=== PATIENT | female | born 1945 | race Caucasian/White ===

== ENCOUNTER 2016-08-27 08:10 | Day surgery (SDC) | payer MEDICARE, OTHER ==
[2016-08-27] MEDS ORDERED: LACTATED RINGERS 500 ML IV ONE (08:16)
[2016-08-27] MEDS ORDERED: TROPICAMIDE 1% OPHTH 2 ML DROPS OPTH ONE (08:38)
[2016-08-27] MEDS ORDERED: KETOROLAC 0.45% OPHTH DROPS OPTH ONE (08:38)
[2016-08-27] MEDS ORDERED: CYCLOPENTOLATE 1% OPHTH DROPS 2 ML OPTH ONE (08:38)
[2016-08-27] MEDS ORDERED: BSS/LIDOCAINE/EPINEPHRINE 1 ML SYRINGE IO ONE (09:15)
[2016-08-27] MEDS ORDERED: PROPARACAINE 0.5% OPHTH DROPS 15 ML OPTH ONE (09:15)
[2016-08-27] MEDS ORDERED: BRIMONIDINE 0.2% OPHTH DROPS 5 ML OPTH ONE (09:15)
[2016-08-27] MEDS ORDERED: EPINEPHrine 1 MG/ML AMP IO ONE (09:15)
[2016-08-27] MEDS ORDERED: NEOMYCIN/POLYMYX/DEXAMETH OPHTH OINT OPTH ONE (09:15)
[2016-08-27] MEDS ORDERED: CHONDR SULF/HYALURONATE SYRINGE IO ONE (09:15)
[2016-08-27] MEDS ORDERED: levoFLOXacin 0.5% OPHTH DROPS 5 ML OPTH ONE (09:15)
[2016-08-27] MEDS ORDERED: fentaNYL 100 MCG/2 ML VIAL IVP ONE (09:25)
[2016-08-27] MEDS ORDERED: MIDAZOLAM 2 MG/2 ML VIAL IVP ONE (09:25)
[2016-08-27] MEDS ORDERED: ONDANSETRON 4 MG/2 ML VIAL IVP ONE (09:25)
[2016-08-27] MEDS ORDERED: DEXAMETHASONE 4 MG/ML VIAL IVP ONE (09:25)
[2016-08-27] MEDS ORDERED: LIDOCAINE-PF 2% 10 ML AMP SUBQ ONE (09:25)
[2016-08-27] MEDS ORDERED: ePHEDrine 50 MG/ML VIAL IVP ONE (09:25)
[2016-08-27] MEDS ORDERED: PROPOFOL 200 MG/20 ML VIAL IVP ONE (09:25)
[2016-08-27 10:57] VITALS: BP 136/85
--- NOTE | 2016-08-27 12:26 | OPERATIVE REPORT ---
DATE OF SURGERY: 08/27/2016 00:00:00 PREOPERATIVE DIAGNOSIS: Visually impairing cataract, right eye. POSTOPERATIVE DIAGNOSIS: Visually impairing cataract, right eye. NAME OF PROCEDURE: Phacoemulsification cataract extraction with intraocular lens implant of the righ t eye, clear corneal lateral approach. SURGEON: Zachary Shah MD ANESTHESIA: General. COMPLICATIONS: None. DESCRIPTION OF SURGICAL PROCEDURE: The patient was brought to the OR and after IV and cardiac leads were placed, the patient was then prepped and draped in the usual ophthalmic manner, after the onset of general anesthesia. A lid speculum was used to separate the eyelids and expose the eye. The eye was held securely with the Colibri forceps. A Micro-Sharp blade was used to make a self-sealing stab wound 2 o'clock hours to the left of the planned clear corneal incision. Viscoelastic was placed i n the eye after the use of intracameral Shugarcaine to help dilate the pupil, and then a crescent ronda de was used to make initial vertical component of the self-sealing clear corneal incision. A 2.7 ker atome was used to complete the incision. A circular tear capsulorrhexis was performed. The nucleus was hydrodissected, and phacoemulsification of the cataract was performed without complication. The I/A unit was used to remove the cortical material from the eye. The posterior capsule was polished c rystal clear with the Roxanna capsule polisher, and again the I/A unit was used to remove any loose par ticulate matter after polishing the capsule. Viscoelastic was used to inflate the capsular bag. An AcrySof lens was inserted into the capsular bag with the loops left at about the 3 o'clock and 9 o'cl ock meridians. The I/A unit was used to remove as much Viscoelastic from the eye as possible, the wo unds were examined and it was decided that the tunnel incision was not quite tight enough so interrup jing 10-0 nylon suture was placed. The suture was tied, trimmed close to the knot, and buried in the limbal side of the clear cornea. BSS was used to fill the anterior chamber, the wounds were found to be sealed and water tight. Several drops of Quixin were placed on the eye. The lid speculum was re moved. A drop of brimonidine was placed on the eye. The eye was shielded, and the patient was taken to the recovery room after awakening from general anesthesia in good condition. JOB #: [id number] EXT JOB #:[id number]
== END 2016-08-27 08:11 | disposition home or self-care (01) ==
LOC: SDS 08:10
PROVIDERS: ATTEND Specialist
PROC: 08RJ3JZ Replacement of Right Lens with Synthetic Substitute, Percutaneous Approach (ICD-10-PCS; principal; 2016-08-27 09:00)
DX: H25.11 Age-related nuclear cataract, right eye (principal); H40.9 Unspecified glaucoma
CPT/HCPCS: 66984; V2632

== ENCOUNTER 2017-11-06 09:47 | Outpatient (CLI) | payer MEDICARE, OTHER ==
[2017-11-06 14:40] LABS: BASOPHILS % (AUTO) 0.7 %; EOSINOPHILS # (AUTO) 0.2 10^3/uL (0.0-0.7); EOSINOPHILS % (AUTO) 5.3 %; HGB - HEMOGLOBIN 12.8 g/dL (12.0-16.0); LYMPHOCYTES # (AUTO) 1.1 10^3/uL (1.5-3.5); LYMPHOCYTES % (AUTO) 29.8 %; MEAN CORPUSCULAR HEMOGLOBIN 33.5 pg (27.0-31.0); MEAN CORPUSCULAR HGB CONC 33.4 g/dL (32.0-36.0); MEAN CORPUSCULAR VOLUME 100.4 fL (81.0-99.0); MONOCYTES # (AUTO) 0.3 10^3/uL (0.0-1.0); MONOCYTES % (AUTO) 8.4 %; NEUTROPHILS # (AUTO) 2.1 10^3/uL (1.5-6.6); NEUTROPHILS % (AUTO) 55.8 %; PLT - PLATELET COUNT 239 10^3/uL (130-450); RED BLOOD COUNT 3.82 10^6/uL (4.20-5.40); RED CELL DISTRIBUTION WIDTH 13.9 % (12.0-15.0); WHITE BLOOD COUNT 3.7 x10^3/uL (4.8-10.8)
== END 2017-11-06 09:48 | disposition home or self-care (01) ==
LOC: LAB.R 09:47
PROVIDERS: ATTEND Internal Medicine
DX: D75.89 Other specified diseases of blood and blood-forming organs (principal)
CPT/HCPCS: 82607; 83921; 85025

== ENCOUNTER 2017-11-10 11:46 | Outpatient (CLI) | payer MEDICARE, OTHER | END 2017-11-10 11:47 | disposition critical access hospital (66) | LOC: EMS 11:46 | PROVIDERS: ATTEND Surgery | DX: R10.9 Unspecified abdominal pain (principal) | CPT/HCPCS: A0425; A0429 ==

== ENCOUNTER 2017-11-10 12:22 | Emergency (ER) | payer MEDICARE, OTHER ==
[2017-11-10 13:10] LABS: BASOPHILS % (AUTO) 0.9 %; EOSINOPHILS % (AUTO) 0.9 %; HGB - HEMOGLOBIN 13.7 g/dL (12.0-16.0); LYMPHOCYTES % (AUTO) 24.5 %; MEAN CORPUSCULAR HEMOGLOBIN 33.4 pg (27.0-31.0); MEAN CORPUSCULAR VOLUME 98.1 fL (81.0-99.0); MEAN PLATELET VOLUME 8.5 fL (7.9-10.8); MONOCYTES # (AUTO) 0.4 10^3/uL (0.0-1.0); MONOCYTES % (AUTO) 9.3 %; NEUTROPHILS # (AUTO) 2.6 10^3/uL (1.5-6.6); NEUTROPHILS % (AUTO) 64.4 %; PLT - PLATELET COUNT 250 10^3/uL (130-450); RED CELL DISTRIBUTION WIDTH 13.9 % (12.0-15.0); WHITE BLOOD COUNT 4.1 x10^3/uL (4.8-10.8)
[2017-11-10] MEDS ORDERED: MORPHINE 2 MG/ML SYRINGE IVP STA ×3 (13:17→18:57)
--- NOTE | 2017-11-10 13:18 | ED Physician Documentation ---
PD HPI ABD PAIN - Stated complaint Stated Complaint: Abd px - Chief complaint Chief Complaint: Abd Pain - History obtained from History obtained from: Patient - History of Present Illness Timing - onset: Other (She developed lower abdominal pain and nausea and diarrhea on October 06. Since then she has had persistently low appetite and lower abdominal pain. She lost 15 pounds since then. She also notes that she has not had a bowel movement since October 06 seconds. The diarrhea only lasted that day. She has tried Tylenol suppositories and enemas which if anything make her worse. She also notes that about 2 weeks ago she was lifting a flower pot and developed right low back pain radiating into the right leg that feels like a burning. She has had sciatica before and this is partially similar.) Review of Systems Constitutional: reports: Fatigue, Weight Loss. denies: Fever, Chills Nose: denies: Rhinorrhea / runny nose, Congestion Cardiac: denies: Chest pain / pressure, Palpitations Respiratory: denies: Dyspnea, Cough GI: reports: Abdominal Pain, Abdominal Swelling, Nausea, Constipation, Diarrhea. denies: Vomiting PD PAST MEDICAL HISTORY - Past Medical History Past Medical History: Yes Cardiovascular: Other Respiratory: None Endocrine/Autoimmune: None GI: Other : Kidney stones, Other HEENT: Glaucoma, Other Psych: None Musculoskeletal: Osteoarthritis Derm: Other - Past Surgical History General: Appendectomy Ortho: Other - Present Medications Home Medications: Ambulatory Orders Medication Instructions Recorded Confirmed Latanoprost 0.005% Ophth Drops 1 drops OPTH QPM 08/26/16 08/26/16 [Xalatan Ophth Drops] Timolol 0.25% Ophth Drops 1 drops OPTH BID 08/26/16 08/26/16 [Timoptic 0.25% Ophth Drops] Oxycodone HCl/Acetaminophen 1 - 2 tab PO Q4H PRN #30 tablet 11/10/17 [Percocet 5-325 mg Tablet] Promethazine Supp [Phenergan Supp] 25 mg WV Q6H PRN #15 supp 11/10/17 - Allergies Allergies/Adverse Reactions: Allergies Allergy/AdvReac Type Severity Reaction Status Date / Time No Known Drug Allergies Allergy Verified 08/26/16 13:44 - Social History Does the pt smoke?: No Smoking Status: Never smoker PD ED PE NORMAL - Vitals Vital signs reviewed: Yes - General General: Alert and oriented X 3, No acute distress - HEENT HEENT: Other (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 Grossly equal sensation and reflexes throughout the lower extremities limited somewhat by chronic neuropathic pain making her hypersensitive.) - Neuro Neuro: Alert and oriented X 3, Normal speech Results - Vitals Vitals: Vital Signs - 24 hr 11/10/17 11/10/17 11/10/17 12:24 14:37 16:27 Temperature 36.4 C L Heart Rate 81 70 69 Respiratory 18 18 18 Rate Blood Pressure 185/106 H 178/92 H O2 Saturation 100 98 100 11/10/17 11/10/17 16:29 18:04 Temperature 36.5 C Heart Rate 62 62 Respiratory 20 16 Rate Blood Pressure 163/102 H 189/99 H O2 Saturation 100 98 Oxygen O2 Source Room air - Labs Labs: Laboratory Tests 11/10/17 11/10/17 11/10/17 13:01 13:01 13:35 WBC 4.1 L RBC 4.10 L Hgb 13.7 Hct 40.2 MCV 98.1 MCH 33.4 H MCHC 34.0 RDW 13.9 Plt Count 250 MPV 8.5 Neut # (Auto) 2.6 Lymph # (Auto) 1.0 L Rogers # (Auto) 0.4 Eos # (Auto) 0.0 Baso # (Auto) 0.0 Absolute Nucleated RBC 0.00 Nucleated RBC % 0.1 Sodium 136 Potassium 3.7 Chloride 100 L Carbon Dioxide 26 Anion Gap 10.0 BUN 19 Creatinine 0.6 Estimated GFR (MDRD) 98 Glucose 108 H Calcium 9.5 Total Bilirubin 1.2 H AST 19 ALT 14 Alkaline Phosphatase 55 Total Protein 7.3 Albumin 4.3 Globulin 3.0 Albumin/Globulin Ratio 1.4 Lipase 29 Urine Color YELLOW Urine Clarity CLEAR Urine pH 7.0 Ur Specific Fisk 1.010 Urine Protein NEGATIVE Urine Glucose (UA) NEGATIVE Urine Ketones TRACE Urine Occult Blood NEGATIVE Urine Nitrite NEGATIVE Urine Bilirubin NEGATIVE Urine Urobilinogen 0.2 (NORMAL) Ur Leukocyte Esterase SMALL H Urine RBC 0-5 Urine WBC 0-3 Ur Squamous Epith Cells FEW Squamous Urine Bacteria Few Urine Casts 3-5 Hyaline Casts Urine Mucus Moderate Strands Ur Microscopic Review INDICATED Urine Culture Comments INDICATED - Rads (name of study) CT A/P Radiology: EMP read contemporaneously (No intra-abdominal pathology. She has early subacute moderate compression fracture of L4 with market bony central spinal canal stenosis and also diverticulosis.) PD MEDICAL DECISION MAKING - ED course ED course: 72-year-old woman with spinal and abdominal pain after an injury with lifting a few weeks ago. No hard neurologic symptoms. CT demonstrates L4 compression fracture with retropulsion and spinal stenosis. I discussed with the patient that WE needed to consult with a spine surgeon. She had seen an orthopedist with [facility] before and we were trying to get a hold of them, but eventually was called back by a general orthopedist and she could not really help me. This was around 530 or so. Attention was then turned to trying to get a hold of the spine surgeon in [place]. Patient also asked us to call [facility] but they had no beds in the spine surgeon was not immediately available. I did speak with Dr. Paredes in [place] who reviewed the images and felt like she may need a surgical intervention at some point but it was not urgent and this could be handled as an outpatient. We had a long discussion about disposition. Patient vacillated on whether she would be able to take care of herself at home. She has been up and ambulatory here into the bathroom several times with some pain but able to do it. I discussed with her that the appropriate level of care for her if she was unable to take care of herself at home would be a fdc and offered to let her board in the emergency department overnight so that this could be addressed in the morning. She refused. She did ask to be admitted and we discussed the limitations of this (i.e. Probably just 1 night, observation status), and after a prolonged discussion she agreed to go home with pain medication and refuses to go to a fdc. - Sepsis Event Vital Signs: Vital Signs - 24 hr 11/10/17 11/10/17 11/10/17 12:24 14:37 16:27 Temperature 36.4 C L Heart Rate 81 70 69 Respiratory 18 18 18 Rate Blood Pressure 185/106 H 178/92 H O2 Saturation 100 98 100 11/10/17 11/10/17 16:29 18:04 Temperature 36.5 C Heart Rate 62 62 Respiratory 20 16 Rate Blood Pressure 163/102 H 189/99 H O2 Saturation 100 98 Oxygen O2 Source Room air Departure - Departure Disposition: 01 Home, Self Care Clinical Impression: L4 vertebral fracture Qualifiers: Encounter type: initial encounter Fracture type: closed Fracture morphology: wedge compression Qualified Code(s): S32.040A - Wedge compression fracture of fourth lumbar vertebra, initial encounter for closed fracture Condition: Good Record reviewed to determine appropriate education?: Yes Instructions: ED Fx Comp Vertebral Prescriptions: Oxycodone HCl/Acetaminophen [Percocet 5-325 mg Tablet] 1 - 2 tab PO Q4H PRN #30 tablet PRN Reason: Pain Promethazine Supp [Phenergan Supp] 25 mg WV Q6H PRN #15 supp PRN Reason: Nausea / Vomiting Comments: I spoke with Dr. Moshe Paredes in [facility], he would be a good option, his phone number is [phone]. Return if worse or call Dr. londono if you would like to reconsider fdc placement. Do not drink or drive while taking narcotic pain medication. Note that many narcotic pain relievers also contain Tylenol/acetaminophen. Please ensure that your total dose of acetaminophen from all sources does not exceed 3 g (3000 mg) per day. You may get constipated while on this medication. Take a stool softener such as Colace twice a day while you are on it. Also add an jryg-gwj-lejrodp laxative such as senna or MiraLAX on any day that you do not have a bowel movement. If you received a narcotic pain medication or sedative while in the emergency department, do not drive for the next 24 hours. Discharge Date/Time: 11/10/17 19:33
[2017-11-10 13:26] LABS: ALBUMIN 4.3 g/dL (3.2-5.5); ALBUMIN/GLOBULIN RATIO 1.4 (1.0-2.2); BILIRUBIN,TOTAL 1.2 mg/dL (0.2-1.0); CALCIUM 9.5 mg/dL (8.5-10.3); CREATININE 0.6 mg/dL (0.4-1.0); TOTAL PROTEIN 7.3 g/dL (6.7-8.2)
[2017-11-10 13:47] LABS: BILIRUBIN,URINE NEGATIVE (NEGATIVE); GLUCOSE, URINE (UA) NEGATIVE (NEGATIVE); KETONES,URINE (UA) TRACE mg/dL (NEGATIVE); LEUKOCYTE ESTERASE, URINE SMALL (NEGATIVE); NITRITE,URINE NEGATIVE (NEGATIVE); OCCULT BLOOD,URINE NEGATIVE (NEGATIVE); PROTEIN,URINE NEGATIVE (NEGATIVE); UROBILINOGEN,URINE 0.2 (NORMAL) E.U./dL (NORMAL)
[2017-11-10 13:52] LABS: CLARITY,URINE CLEAR (CLEAR)
[2017-11-10] MEDS ORDERED: IOPAMIDOL-300 100 ML VIAL ONE (14:07)
[2017-11-10 14:11] LABS: BACTERIA,URINE Few /HPF (None Seen); MUCUS,URINE Moderate Strands; RBC,URINE 0-5 /HPF (0-5); SQUAMOUS EPITHELIAL CELL,UR FEW Squamous (<= Few)
[2017-11-10] MEDS ORDERED: IOPAMIDOL-300 100 ML VIAL IVP ONE (14:31)
--- NOTE | 2017-11-10 15:01 | CT Report ---
Procedure Date: 11/10/2017 Accession Number: [id number] / [id number] Procedure: CT - Abdomen/Pelvis W/ CPT Code: FULL RESULT: EXAM: CT ABDOMEN AND PELVIS EXAM DATE: 11/10/2017 02:30 PM. CLINICAL HISTORY: Lower abdominal pain. No bowel movement. COMPARISONS: None. TECHNIQUE: Routine helical CT imaging was performed through the abdomen and pelvis. IV contrast: ISOVUE 300 100mL. Enteric contrast: No. Reconstructions: Coronal and sagittal. In accordance with CT protocol optimization, one or more of the following dose reduction techniques were utilized for this exam: automated exposure control, adjustment of mA and/or KV based on patient size, or use of iterative reconstructive technique. FINDINGS: Lung Bases: Unremarkable. Liver: Normal. No masses. Gallbladder/Bile Ducts: Unremarkable. Spleen: Normal. Pancreas: Normal. Adrenal Glands: Normal. Kidneys: Normal. No masses or hydronephrosis. Peritoneal Cavity/Bowel: Diverticula off the colon. No free fluid, free air or adenopathy. No masses or acute inflammatory process. No excessive stool retention. Appendix not visualized, but no inflammatory changes adjacent to the cecum. Pelvic Organs: Hysterectomy. 8 x 6 mm extremely dense calcification left adnexa without soft tissue component. No soft tissue adnexal mass lesions. No free fluid. No stones within the small caliber urinary bladder. Vasculature: No aneurysms or other significant abnormality. Bones: Moderate impaction superior endplate of L4 involving entirety of the endplate. Uniform 50% loss of height. 7 mm retropulsed bone fragment with marked bony central spinal compromise at L3-L4. Faint uniform sclerosis superior half of the L4 vertebral body. Multiple old mild compression fractures throughout the rest of the spine. Moderate to marked central spinal canal stenosis L4-L5 due to degenerative changes. Other: None. IMPRESSION: 1. Early subacute moderate compression fracture L4 with marked bony central spinal canal stenosis. Is this lady focally tender in this region? 2. Colonic diverticulosis. RADIA The above findings were discussed with James Hough by Dr. Keren Buck at 15:00 hrs on 11/10/17.
[2017-11-10 18:05] VITALS: BP 189/99
[2017-11-10] MEDS ORDERED: PROMETHAZINE 25 MG SUPP PR STA (18:40)
[2017-11-10] MEDS ORDERED: oxyCODONE/ACET 5/325 Prepack 4 PO STA (18:40)
== END 2017-11-10 19:33 | disposition home or self-care (01) ==
LOC: EDUNIT# → ED 12:22
DX: S32.040A Wedge compression fracture of fourth lumbar vertebra, initial encounter for closed fracture (principal); X50.9XXA Other and unspecified overexertion or strenuous movements or postures, initial encounter
CPT/HCPCS: 36415; 74177; 80053; 81001; 83690; 85025; 87086; 96374; 96376; 99284; J2270; J8498; Q9967; 81003

== ENCOUNTER 2017-11-26 10:18 | Outpatient (CLI) | payer MEDICARE, OTHER ==
--- NOTE | 2017-11-27 18:21 | MRI Report ---
Reason: CLOSED COMPRESSION FRACTURE OF FORTH LUMBAR VERTEB Procedure Date: 11/26/2017 Accession Number: [id number] / [id number] Procedure: MRI - Lumbar Spine W/O CPT Code: FULL RESULT: EXAM: MRI LUMBAR SPINE WITHOUT CONTRAST EXAM DATE: 11/26/2017 11:18 AM. CLINICAL HISTORY: Closed compression fracture of fourth lumbar vertebra. COMPARISON: CT abdomen and pelvis 11/10/2017. TECHNIQUE: Multiplanar, multisequence T1-weighted and fluid-sensitive sequences of the lumbar spine from T12 to S1 without contrast. Other: None. FINDINGS: Spinal Canal: The conus terminates at T12-L1. The conus medullaris and cauda equina are unremarkable. Alignment: No scoliosis or spondylolisthesis. Bone Marrow: Five [id number] lumbar vertebral bodies are assumed. Most caudal rib-bearing vertebral body labeled T12. There is a transitional lumbosacral anatomy with a lumbarized S1. Acute/subacute compression fracture of the upper L5 endplate, loss of 30% height, marrow edema along the superior endplate, sparing of the T1 hyperintense marrow along the anterior inferior L5 vertebral body. Disk Levels/Facets: T10-T11: Disk desiccation without significant canal narrowing. Mild facet arthropathy without significant foraminal narrowing. T11-T12: Disk desiccation. Annular bulge. Mild facet arthropathy. Mild bilateral foraminal narrowing. Mild canal narrowing. T12-L1: Disk desiccation. Annular bulge. No significant canal or foraminal narrowing. L1-L2: Disk desiccation. Posterior annular fissure. No significant canal or foraminal narrowing. L2-L3: Disk desiccation. Mild anterior wedge deformity. Annular bulge. Mild facet arthropathy. Mild bilateral foraminal narrowing. Mild canal narrowing. L3-L4: Disk desiccation. Annular bulge. Mild bilateral facet arthropathy and ligamentum flavum thickening. Mild subarticular narrowing and mild canal narrowing. Mild bilateral foraminal narrowing. L4-L5: Annular bulge. Bilateral facet arthropathy and ligamentum flavum thickening. Severe canal narrowing and severe subarticular narrowing. Moderate bilateral foraminal narrowing. L5-S1: Annular bulge. Circumferential disk osteophyte complex eccentric to the left subarticular zone. Bilateral facet arthropathy and ligamentum flavum thickening. Severe left moderate right subarticular narrowing. Moderate bilateral foraminal narrowing. At S1-S2, rudimentary disk without significant canal or foraminal narrowing. Musculature: Normal. No edema or fatty atrophy. Other: The partially visualized retroperitoneum is unremarkable. IMPRESSION: 1. Acute/subacute central compression fracture of the upper L5 endplate. There is 30% central height loss without retropulsion. Marrow edema pattern with sparing of the anterior inferior L5 vertebrae compatible with osteoporotic compression fracture. 2. At L4-L5, annular bulge, facet arthropathy and ligamentum flavum thickening results in severe canal narrowing and severe subarticular narrowing. 3. At L5-S1, circumferential disk osteophyte complex eccentric to the left subarticular zone resulting in significant marked stenosis of the left subarticular zone, impingement of the left S1 nerve root could be correlated with left S1 radiculopathy. Moderate bilateral foraminal narrowing. Comment: The following findings are so common in adults without low back pain that while we report their presence, they must be interpreted with caution and in the context of the clinical situation. (Reference Juan Luisvik et al, Spine 2001) Prevalence of findings in patients without low back pain: Disk degeneration (any evidence): 92% Disk desiccation/T2 signal loss: 83% Disk height loss: 56% Disk bulge: 64% Disk protrusion: 32% Annular tear/high intensity zone: 38% RADIA
== END 2017-11-26 10:19 | disposition home or self-care (01) ==
LOC: DI 10:18
PROVIDERS: ATTEND Physician Assistant
DX: M48.56XA Collapsed vertebra, not elsewhere classified, lumbar region, initial encounter for fracture (principal); M51.36 Other intervertebral disc degeneration, lumbar region; M47.896 Other spondylosis, lumbar region; M51.34 Other intervertebral disc degeneration, thoracic region; M47.897 Other spondylosis, lumbosacral region
CPT/HCPCS: 72148

== ENCOUNTER 2017-12-11 12:00 | Outpatient (CLI) | payer MEDICARE, OTHER ==
--- NOTE | 2017-12-12 17:01 | MRI Report ---
Reason: CERVICAL STENOSIS OF SPINE Procedure Date: 12/11/2017 Accession Number: [id number] / [id number] Procedure: MRI - Cervical Spine W/O CPT Code: FULL RESULT: EXAM: MRI CERVICAL SPINE WITHOUT CONTRAST EXAM DATE: 12/11/2017 12:43 PM. CLINICAL HISTORY: Cervical stenosis of spine. Severe neck pain. COMPARISONS: None. TECHNIQUE: Multiplanar, multisequence T1-weighted and fluid-sensitive sequences of the cervical spine without contrast. Other: None. FINDINGS: Neurologic Structures: The visualized posterior fossa structures are unremarkable. No signal abnormality in the visualized spinal cord. Alignment: Anterolisthesis of C3 on C4 measures 3 mm. Bone Marrow: No fractures. Type I endplate change is at C3-C4, C4-C5, C5-C6, and T2-T3. Interspace Levels/Facets: All visualized intervertebral disks are desiccated. C1-C2: Unremarkable. C2-C3: Moderate bilateral facet osteoarthritis results in moderate left foraminal narrowing. Mild ligamentum flavum hypertrophy causes minimal spinal canal narrowing. C3-C4: The anterolisthesis, mild posterior disk/osteophyte complex and severe right-sided facet osteoarthritis cause mild spinal canal, severe right foraminal, and severe left foraminal narrowing. C4-C5: Moderate disk height loss is accompanied by anterior endplate spurring. A posterior disk/osteophyte complex and ligamentum flavum hypertrophy cause severe spinal canal and bilateral foraminal narrowing. The cord is compressed into a jael configuration. C5-C6: Moderate disk height loss is accompanied by anterior endplate spurring. A posterior disk/osteophyte complex, mild ligamentum flavum hypertrophy, and moderate bilateral facet hypertrophy cause severe spinal canal and bilateral foraminal narrowing. The cord is compressed to a jael configuration. C6-C7: A mild posterior disk/osteophyte complex causes mild spinal canal and severe bilateral foraminal narrowing. C7-T1: Unremarkable. Musculature: Normal. No edema or fatty atrophy. Other: The paravertebral and prevertebral soft tissues are normal. IMPRESSION: 1. Anterolisthesis of C3 on C4. 2. Mild spinal canal, severe right foraminal, and severe left foraminal narrowing at C3-C4 due to disk and posterior element degenerative changes. 3. Severe spinal canal and bilateral foraminal narrowing at C4-C5 due to disk and posterior element degenerative changes. 4. Severe spinal canal and bilateral foraminal narrowing at C5-C6 due to disk and posterior element degenerative changes. 5. Mild spinal canal and severe bilateral foraminal narrowing at C6-C7 due to a disk/osteophyte complex. RADIA
== END 2017-12-11 12:01 | disposition home or self-care (01) ==
LOC: DI 12:00
PROVIDERS: ATTEND Neurological Surgery
DX: M50.31 Other cervical disc degeneration, high cervical region (principal); M47.892 Other spondylosis, cervical region; M48.02 Spinal stenosis, cervical region; G95.20 Unspecified cord compression; M43.12 Spondylolisthesis, cervical region
CPT/HCPCS: 72141

== ENCOUNTER 2018-01-26 11:25 | Outpatient (CLI) | payer MEDICARE, OTHER ==
[2018-01-26 17:51] LABS: BILIRUBIN,URINE NEGATIVE (NEGATIVE); GLUCOSE, URINE (UA) NEGATIVE (NEGATIVE); KETONES,URINE (UA) NEGATIVE (NEGATIVE); LEUKOCYTE ESTERASE, URINE NEGATIVE (NEGATIVE); NITRITE,URINE NEGATIVE (NEGATIVE); OCCULT BLOOD,URINE LARGE (NEGATIVE); PROTEIN,URINE TRACE mg/dL (NEGATIVE); UROBILINOGEN,URINE 0.2 (NORMAL) E.U./dL (NORMAL)
[2018-01-26 18:04] LABS: CLARITY,URINE HAZY (CLEAR)
[2018-01-26 18:11] LABS: RBC,URINE TNTC /HPF (0-5)
[2018-01-26 18:12] LABS: BACTERIA,URINE Many /HPF (None Seen); MUCUS,URINE Few Strands; SQUAMOUS EPITHELIAL CELL,UR MANY Squamous (<= Few)
== END 2018-01-26 11:26 | disposition home or self-care (01) ==
LOC: LAB.R 11:25
PROVIDERS: ATTEND Physician Assistant Medical
DX: R35.0 Frequency of micturition (principal); R30.0 Dysuria; R31.9 Hematuria, unspecified
CPT/HCPCS: 81001; 87086; 87181

== ENCOUNTER → 2019-04-19 | Outpatient (CLI) | payer MEDICARE, OTHER | LOC: LAB.R 11:40 | PROVIDERS: ATTEND Family Medicine | DX: R35.0 Frequency of micturition (principal) | CPT/HCPCS: 87086; 87181 ==

== ENCOUNTER 2019-04-21 08:41 | Outpatient (CLI) | payer MEDICARE, OTHER ==
[2019-04-21 18:48] LABS: BASOPHILS % (AUTO) 0.9 %; EOSINOPHILS # (AUTO) 0.1 10^3/uL (0.0-0.7); EOSINOPHILS % (AUTO) 2.1 %; HGB - HEMOGLOBIN 13.9 g/dL (12.0-16.0); LYMPHOCYTES # (AUTO) 0.9 10^3/uL (1.5-3.5); LYMPHOCYTES % (AUTO) 27.2 %; MEAN CORPUSCULAR HEMOGLOBIN 35.1 pg (27.0-31.0); MEAN CORPUSCULAR HGB CONC 32.6 g/dL (32.0-36.0); MEAN CORPUSCULAR VOLUME 107.6 fL (81.0-99.0); MEAN PLATELET VOLUME 11.1 fL (7.9-10.8); MONOCYTES # (AUTO) 0.4 10^3/uL (0.0-1.0); MONOCYTES % (AUTO) 12.5 %; NEUTROPHILS # (AUTO) 1.9 10^3/uL (1.5-6.6); PLT - PLATELET COUNT 191 10^3/uL (130-450); RED BLOOD COUNT 3.96 10^6/uL (4.20-5.40); RED CELL DISTRIBUTION WIDTH 14.6 % (12.0-15.0); WHITE BLOOD COUNT 3.3 x10^3/uL (4.8-10.8)
[2019-04-21 18:56] LABS: ALBUMIN 4.3 g/dL (3.2-5.5); ALBUMIN/GLOBULIN RATIO 1.5 (1.0-2.2); BILIRUBIN,TOTAL 0.7 mg/dL (0.2-1.0); CALCIUM 9.6 mg/dL (8.5-10.3); CREATININE 0.6 mg/dL (0.4-1.0); TOTAL PROTEIN 7.2 g/dL (6.7-8.2)
== END 2019-04-21 08:42 | disposition home or self-care (01) ==
LOC: LAB.R 08:41
PROVIDERS: ATTEND Family Medicine
DX: R35.0 Frequency of micturition (principal); R29.6 Repeated falls; R41.3 Other amnesia
CPT/HCPCS: 36415; 80053; 84443; 85025; 87086; 87181

== ENCOUNTER 2020-01-05 10:47 | Outpatient (CLI) | payer MEDICARE, OTHER | END 2020-01-05 10:48 | disposition critical access hospital (66) | LOC: EMS 10:47 | PROVIDERS: ATTEND Surgery | DX: M54.5 Low back pain (principal); R20.0 Anesthesia of skin; W18.30XA Fall on same level, unspecified, initial encounter; Y92.009 Unspecified place in unspecified non-institutional (private) residence as the place of occurrence of the external cause | CPT/HCPCS: A0425; A0429 ==

== ENCOUNTER 2020-01-05 11:46 | Inpatient (IN) | payer MEDICARE, OTHER ==
--- NOTE | 2020-01-05 12:36 | ED Physician Documentation ---
History of Present Illness - Stated complaint Stated Complaint: FELL/BACK PAIN - Chief complaint Chief Complaint: Trauma Ch/Bk - Additonal information Additional information: 74-year-old female brought into the emergency department via EMS for evaluation after a fall. Patient thinks that she may have fallen around 3 days ago. She states that she was bending over and fell onto the ground. She is not very clear about the events but says that she could not immediately get up. She thinks she was on the ground for perhaps an hour or 2 before she was able to make her way to the couch. Since then she reports that she has had low back pa in around the waistline. She has been "gimping around" Patient states that she lives by herself and no one helps care for her. She states she has not eaten for 3 or 4 days. When asked if she thinks she has dementia she states "probably so." Patient unsure of past medical history. Though she states she does not think she has much. She denies taking any routinely prescribed medications. 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 She denies nausea vomiting or diarrhea. no dysuria Patient has in her possession a pulsed form that indicates she is a DNR comfort measures no antibiotics. The listed power of immigration attorney phone number is not excepting voicemails. Review of Systems Unable to obtain: Confused, Dementia, Other (pt seems confused. difficult to obtain) Cardiac: denies: Chest pain / pressure, Palpitations Respiratory: denies: Dyspnea, Cough GI: denies: Abdominal Pain, Nausea, Vomiting : denies: Dysuria PD PAST MEDICAL HISTORY - Past Medical History Cardiovascular: Other Respiratory: None Endocrine/Autoimmune: None GI: Other : Kidney stones, Other HEENT: Glaucoma, Other Psych: None Musculoskeletal: Osteoarthritis Derm: Other - Past Surgical History General: Appendectomy Ortho: Other - Present Medications Home Medications: Ambulatory Orders Medication Instructions Recorded Confirmed Latanoprost 0.005% Ophth Drops 1 drops OPTH QPM 08/26/16 08/26/16 [Xalatan Ophth Drops] Timolol 0.25% Ophth Drops 1 drops OPTH BID 08/26/16 08/26/16 [Timoptic 0.25% Ophth Drops] Oxycodone HCl/Acetaminophen 1 - 2 tab PO Q4H PRN #30 tablet 11/10/17 [Percocet 5-325 mg Tablet] Promethazine Supp [Phenergan Supp] 25 mg MD Q6H PRN #15 supp 11/10/17 - Allergies Allergies/Adverse Reactions: Allergies Allergy/AdvReac Type Severity Reaction Status Date / Time No Known Drug Allergies Allergy Verified 01/05/20 11:54 - Social History Does the pt smoke?: No Smoking Status: Never smoker PD ED PE EXPANDED - General General: Alert, No acute distress - HEENT HEENT: PERRL, Gaze palsy (left eye), Other (left with gaze palsy. Normal EOM right eye) - Neck Neck: Supple w/out meningeal sx, No tenderness, Other (FULL ROM in all planes). No: Soft tissue TTP - Cardiac Cardiac: Regular Rate, Murmur Present, Radial strong equal, Pedal strong equal, Cap refill < 2 sec - Respiratory Respiratory: Clear to ausultation edwina. No: Distress, Labored - Abdomen Abdomen: Normal Bowel sounds. No: Tender to palpation - Back Back: Vertebral tenderness (lower lumbar spine), Soft tissue tenderness - Extremities Extremities: Normal, Other (motor strength 5/5 X4 extremeties) - Neuro Neuro: Confused, Normal motor, Normal Speech, Normal reflexes, CN deficit (left eye gaze palsy. ), Normal speech - GCS Eye Opening: Spontaneous Motor: Obeys Commands Verbal: Confused Total: 14 Results - Vitals Vitals: Vital Signs - 24 hr 01/05/20 01/05/20 11:54 13:00 Temperature 36.3 C L Heart Rate 80 80 Respiratory 18 16 Rate Blood Pressure 137/95 H 129/85 H O2 Saturation 100 100 Oxygen O2 Source Room air - Labs Labs: Laboratory Tests 01/05/20 01/05/20 01/05/20 12:30 12:30 13:36 WBC 4.1 L RBC 3.57 L Hgb 13.0 Hct 37.8 MCV 105.9 H MCH 36.4 H MCHC 34.4 RDW 15.4 H Plt Count 196 MPV 9.9 Neut # (Auto) 2.9 Lymph # (Auto) 0.8 L Scurry # (Auto) 0.3 Eos # (Auto) 0.0 Baso # (Auto) 0.0 Absolute Nucleated RBC 0.00 Nucleated RBC % 0.0 Sodium 133 L Potassium 3.6 Chloride 98 L Carbon Dioxide 26 Anion Gap 9.0 BUN 19 Creatinine 0.5 Estimated GFR (MDRD) 120 Glucose 108 H Calcium 9.2 Total Bilirubin 2.3 H AST 32 ALT 30 Alkaline Phosphatase 54 Total Protein 7.4 Albumin 4.0 Globulin 3.4 Albumin/Globulin Ratio 1.2 Lipase 33 Urine Color DARK YELLOW Urine Clarity SL. CLOUDY Urine pH 6.0 Ur Specific [place] 1.025 Urine Protein 30 H Urine Glucose (UA) NEGATIVE Urine Ketones >=80 H Urine Occult Blood TRACE-INTA Urine Nitrite NEGATIVE Urine Bilirubin NEGATIVE Urine Urobilinogen 4 H Ur Leukocyte Esterase MODERATE H Urine RBC 0-5 Urine WBC >25 H Ur Squamous Epith Cells FEW Squamous Urine Bacteria Many H Ur Microscopic Review INDICATED Urine Culture Comments INDICATED - Rads (name of study) CT head Radiology: Final report received (No acute intracranial abnormality. Advanced global cerebral volume loss and chronic microvascular ischemic changes) Lumbar CT Radiology: Final report received (Acute appearing compression fracture at L3, new from 11/26/2017 exam. Remote compression fracture at L4 unchanged. Multilevel spinal canal and neural foraminal stenosis with contact attribution from posterior osseous retropulsion and compression fractures along with superimposed degenerative change) CXR Radiology: Final report received (No acute cardiopulmonary process) PD MEDICAL DECISION MAKING - ED course Complexity details: reviewed results, re-evaluated patient, considered differential, d/w patient ED course: 74-year-old female who likely has underlying dementia presents to the emergency department for evaluation of low back pain after a reported fall 3 to 4 days ago. History is difficult to obtain given patient's mental status. A CT scan of her lumbar spine does show an acute new L3 compression fracture with more than 50% height loss. Medical disposition for her will prove challenging as it is not likely safe for her to return home to live independently. L3 compression Fracture - [facility] consult for L3 compression fx with > 50% loss of height - I have spoke with Dr. Sheppard at [facility]. he is a spine surgeon. He reports to me that given her osteopenia and the low level of the lumbar fracture she is not a good candidate for a TLSO brace. He also does not feel that surgery is indicated at this time. He would recommend upright AP and lateral lumbar films. No significant change in imaging in comparison to the CT would mean that she is okay to be discharged with appropriate analgesia and activity as tolerated Dementia/AMS - Social work consult has been placed. I did speak with the patient's listed contact Peri. She is the patient's neighbor. She reports to me that the patient lives alone and does not have any close family members. She states that for much of the last month she has noticed the patient getting more confused and often stating that there are men looking at her through the windows.She is concerned that patient may not be safe to live alone anymore - UA is most consistent with infection. Culture pending. Ceftriaxone given. No fever or leukocytosis. No hypotension or tachycardia. Doubt sepsis With Dr. Jeramie vásquez. Patient will be admitted to the hospital for altered mental status and urinary tract infection. Social work consult is pending ultimate disposition. The hope is that by treating the infection her mentation will improve making it safer for her to return home Departure - Departure Disposition: [facility] DC/Xfer Clinical Impression: UTI (urinary tract infection) Qualifiers: Urinary tract infection type: acute cystitis Hematuria presence: without hematuria Qualified Code(s): N30.00 - Acute cystitis without hematuria Altered mental status Qualifiers: Altered mental status type: unspecified Qualified Code(s): R41.82 - Altered mental status, unspecified Lumbar compression fracture Qualifiers: Encounter type: initial encounter Lumbar vertebra fracture level: L3 Qualified Code(s): S32.030A - Wedge compression fracture of third lumbar vertebra, initial encounter for closed fracture
[2020-01-05 12:47] LABS: BASOPHILS % (AUTO) 0.5 %; EOSINOPHILS % (AUTO) 0.7 %; LYMPHOCYTES # (AUTO) 0.8 10^3/uL (1.5-3.5); LYMPHOCYTES % (AUTO) 19.6 %; MEAN CORPUSCULAR HEMOGLOBIN 36.4 pg (27.0-31.0); MEAN CORPUSCULAR HGB CONC 34.4 g/dL (32.0-36.0); MEAN CORPUSCULAR VOLUME 105.9 fL (81.0-99.0); MEAN PLATELET VOLUME 9.9 fL (7.9-10.8); MONOCYTES # (AUTO) 0.3 10^3/uL (0.0-1.0); NEUTROPHILS # (AUTO) 2.9 10^3/uL (1.5-6.6); PLT - PLATELET COUNT 196 10^3/uL (130-450); RED BLOOD COUNT 3.57 10^6/uL (4.20-5.40); RED CELL DISTRIBUTION WIDTH 15.4 % (12.0-15.0); WHITE BLOOD COUNT 4.1 x10^3/uL (4.8-10.8)
--- NOTE | 2020-01-05 12:57 | CT Report ---
PROCEDURE: HEAD WO INDICATIONS: Trauma, fall, altered mental status, dementia TECHNIQUE: Noncontrast 4.5 mm thick angled axial sections acquired from the foramen magnum to the vertex. For r adiation dose reduction, the following was used: automated exposure control, adjustment of mA and/or kV according to patient size. COMPARISON: None. FINDINGS: Image quality: Excellent. No acute intracranial hemorrhage, abnormal extra-axial fluid collection, mass effect, or midline shif t. The ventricular system and basilar cisterns are patent. There is advanced global cerebral volume loss with passive expansion of the ventricles and extra-axia l spaces, along with advanced chronic microvascular ischemic change. The degree of ventricular enlarg ement appears commensurate with the underlying volume loss. Left globe prosthesis. Right orbital structures unremarkable. Paranasal sinuses and mastoid air cells are clear. No suspicious lytic or blastic osseous lesion. IMPRESSION: No acute intracranial abnormality. Advanced global cerebral volume loss and chronic microvascular isc hemic changes. Reviewed by: Art King MD on 01/05/2020 12:55 PM PDT Approved by: Art King MD on 01/05/2020 12:55 PM PDT Station ID: [id number]
[2020-01-05 13:01] LABS: ALBUMIN/GLOBULIN RATIO 1.2 (1.0-2.2); BILIRUBIN,TOTAL 2.3 mg/dL (0.2-1.0); CALCIUM 9.2 mg/dL (8.5-10.3); CREATININE 0.5 mg/dL (0.4-1.0); TOTAL PROTEIN 7.4 g/dL (6.7-8.2)
--- NOTE | 2020-01-05 13:07 | CT Report ---
PROCEDURE: LUMBAR SPINE WO INDICATIONS: fall 3 days ago TECHNIQUE: Noncontrast 3 mm thick sections acquired from the T12 level to the sacrum. Sagittal and coronal refo rmats were constructed. For radiation dose reduction, the following was used: automated exposure co ntrol, adjustment of mA and/or kV according to patient size. COMPARISON: None. FINDINGS: Image quality: Excellent. Bones: Unchanged appearance of L4 compression fracture when compared with 11/26/2017 exam. There is a new compression fracture at L3 with approximately 50% height loss centrally and anteriorly. This fred ears acute. There is also mild anterior wedging of the L2 vertebral body which is slightly worse when compared with the November 09, 2017 exam. Remaining vertebral body heights are within normal limits. T here is diffuse osteopenia. No suspicious lytic or blastic osseous lesion. Degenerative endplate haynes ges from L3-L4 through L5-S1. Soft tissues: Prevertebral and paraspinous soft tissues are within normal limits. The included unenha nced retroperitoneal visceral structures demonstrate no acute finding. T12-L1: No spinal canal or neural foraminal stenosis. L1-L2: There is probable mild spinal canal stenosis due to a combination of diffuse disc bulge and joy perimposed broad-based posterior disc protrusion along with buckling of the ligamentum flavum and fac et hypertrophy. These factors all combine to produce mild bilateral neural foraminal stenosis. L2-L3: Diffuse disc bulge and superimposed broad-based posterior disc protrusion combined with pos terior osseous retropulsion of L3 related to the compression fracture to produce moderate-severe spin al canal stenosis. Disc bulge and facet hypertrophy combine to produce mild bilateral neural foramina l stenosis. L3-L4: Diffuse disc bulge and protrusion combined with posterior osseous retropulsion related to co mpression fracture to produce moderate-severe spinal canal stenosis. These factors combine to produce moderate bilateral neural foraminal stenosis. L4-L5: There is severe spinal canal and moderate bilateral neural foraminal stenosis related to dis c height loss, diffuse disc bulge and protrusion, posterior ossific ridging of the endplates, facet h ypertrophy, and buckling of ligamentum flavum. L5-S1: No spinal canal stenosis. Mild right and moderate left neural foraminal narrowing. IMPRESSION: Acute appearing compression fracture at L3, new from 11/26/2017 exam. Remote compression fracture at L4 unchanged. Multilevel spinal canal and neural foraminal stenosis, with contribution from posterior osseous retro pulsion due to the compression fractures along with superimposed degenerative changes. Please see abo ve for details and correlate for any corresponding radicular symptoms. Reviewed by: Art King MD on 01/05/2020 1:06 PM PDT Approved by: Art King MD on 01/05/2020 1:06 PM PDT Station ID: [id number]
--- NOTE | 2020-01-05 13:09 | XRAY Report ---
PROCEDURE: Chest 1 View X-Ray INDICATIONS: fall, dementia TECHNIQUE: One view of the chest was acquired. COMPARISON: 01/11/2015 FINDINGS: Surgical changes and devices: Partially visualized orthopedic plate and screws noted in the left nikolai dian. Lungs and pleura: No pleural effusions or pneumothorax. Lungs are clear. Calcified granulomas versu s left chest wall dystrophic calcification project over the left lung base. Mediastinum: Mediastinal contours appear normal. Heart size is normal. Bones and chest wall: No suspicious bony lesions. Overlying soft tissues appear unremarkable. IMPRESSION: No acute cardiopulmonary disease process. Reviewed by: Danielle Ace MD, PhD on 01/05/2020 1:08 PM PDT Approved by: Danielle Ace MD, PhD on 01/05/2020 1:08 PM PDT Station ID: [id number]
[2020-01-05 13:54] LABS: GLUCOSE, URINE (UA) NEGATIVE (NEGATIVE); KETONES,URINE (UA) >=80 mg/dL (NEGATIVE); LEUKOCYTE ESTERASE, URINE MODERATE (NEGATIVE); NITRITE,URINE NEGATIVE (NEGATIVE); OCCULT BLOOD,URINE TRACE-INTA (NEGATIVE); PROTEIN,URINE 30 mg/dL (NEGATIVE); UROBILINOGEN,URINE 4 E.U./dL (NORMAL)
[2020-01-05 13:57] LABS: BILIRUBIN,URINE NEGATIVE (NEGATIVE); CLARITY,URINE SL. CLOUDY (CLEAR); ICTOTEST,URINE NEGATIVE
[2020-01-05 14:02] LABS: BACTERIA,URINE Many /HPF (None Seen); RBC,URINE 0-5 /HPF (0-5); SQUAMOUS EPITHELIAL CELL,UR FEW Squamous (<= Few)
--- NOTE | 2020-01-05 15:01 | XRAY Report ---
PROCEDURE: Lumbar Spine 2 View INDICATIONS: compar to CT TECHNIQUE: 2 views of the lumbar spine were acquired. COMPARISON: CT of lumbar spine from the same day. MRI of lumbar spine dated 11/26/2017. FINDINGS: Bones: 5 [id number] vertebrae are present. There is straightening of normal lumbar lordosis. C hronic appearing anterior wedge compression deformity at L4 level is again seen not significantly lloyd nged from [address] finding of acute appearing anterior wedge compression deformity at L3 level is again noted, with up to 50-60% loss of L3 vertebral body height anteriorly, unchanged from CT boyd dy on the same day. Chronic appearing anterior wedge compression deformity at T12 and L2 level are ag ain seen, also unchanged from 2018 study. No other new compression deformity is seen. No suspicious b umer lesions. Soft tissues: Overlying bowel gas pattern is normal. No suspicious soft tissue calcifications. IMPRESSION: Acute appearing anterior wedge compression deformity at L3 level with up to 50-60% loss of L2 vertebral body anteriorly unchanged from earlier CT study. Chronic appearing anterior wedge com pression deformities at T12, L2, and L4 levels unchanged from prior studies. Reviewed by: Eladio Saldaña MD on 01/05/2020 3:00 PM PDT Approved by: Eladio Saldaña MD on 01/05/2020 3:00 PM PDT Station ID: [id number]
[2020-01-05] MEDS ORDERED: cefTRIAXone 1 GM in SODIUM CHLORIDE 0.9% MINIBAG 100 ML IV STA (15:09)
[2020-01-05] MEDS ORDERED: SODIUM CHLORIDE FLUSH 0.9% 10 ML SYRINGE IVP PRN (16:07)
[2020-01-05] MEDS ORDERED: MORPHINE 2 MG/ML CARPUJECT IVP PRN (16:14)
[2020-01-05] MEDS ORDERED: ONDANSETRON 4 MG/2 ML VIAL IVP PRN (16:14)
[2020-01-05] MEDS ORDERED: oxyCODONE 5 MG TABLET PO PRN (16:14)
--- NOTE | 2020-01-05 16:19 | HISTORY & PHYSICAL EXAMINATION ---
Chief Complaint - Chief Complaint Chief Complaint: fall, AMS History of Present Illness - Admitted From Admitted From:: ER - History Obtained From Records Reviewed: [facility] History obtained from: pt - History of Present Illness HPI Comment/Other: This is a 74-year-old female With past medical history significant for glucoma, arthritis, kidney stone, who brought into the emergency department via EMS for evaluation of her fall. Patient is alert and orientated. She report she was bending over and fell onto the ground. she denies Loss of consciousness. then she reports that she has had low back pain. Patient thinks that she may have fallen about 3 days ago. she is easy forgetful. Patient states that she lives by herself, no family member, she has no child. Pt report there is a men looking at her through the windows. She is concerned her safety to live alone anymore but she also state she had a very good neighbour to help her "that is fine." street worker was consulted by ER to help pt. CAT scan of spinal show patient has acute appearing compression fracture of L3. [facility]. pt is not a good candidate for a TLSO brace. Surgeon also does not feel that surgery is indicated at this time. pt is okay to be discharged with appropriate analgesia and activity as tolerated. Urinalysis revealed patient has urinary tract infection. Discussed the care goal with the patient, patient stated she needed DNR. History - Past Medical History Cardiovascular: reports: Other Respiratory: reports: None Endocrine/Autoimmune: reports: None GI: reports: Other : reports: Kidney stones, Other HEENT: reports: Glaucoma, Other Psych: reports: None Musculoskeletal: reports: Osteoarthritis Derm: reports: Other MRSA Hx?: No - Past Surgical History General: reports: Appendectomy Ortho: reports: Other - Family & Social History Family History: Mother: , Father: Family History Comment/Other: Patient reported her father at age 97, unknown medical history, Her mother at early 80 age. Social History Notes: Patient reported she 3 time but no children. She denies alcohol or drug issue, she reported she quit smoking 20 years ago. Meds/Allgy - Home Medications Home Medications: Ambulatory Orders Medication Instructions Recorded Confirmed Brimonidine 0.2% Ophth Drops 1 drops RIGHTEYE BID 01/05/20 01/05/20 [Alphagan P 0.2% Ophth Drops] Timolol 0.5% Ophth Drops [Timoptic 1 drops RIGHTEYE BID 01/05/20 01/05/20 0.5% Ophth Drops] - Allergies Allergies/Adverse Reactions: Allergies Allergy/AdvReac Type Severity Reaction Status Date / Time No Known Drug Allergies Allergy Verified 01/05/20 11:54 Review of Systems - Constitutional Constitutional: denies: Fever, Chills, Night sweats - Eyes Eyes: reports: Other (left blind). denies: Pain, Dipolpia - Ears, Nose & Throat Ears, Nose & Throat: denies: Ear pain, Nosebleeds, Nasal congestion, Bleeding gums - Cardiovascular Cariovascular: denies: Palpitations, Chest pain, Lightheadedness, Syncope, Exertional dyspnea - Respiratory Respiratory: denies: Cough, Sputum production, Wheezing, Hemoptysis, SOB at rest, SOB with exertion - Gastrointestinal Gastrointestinal: denies: Abdominal pain, Constipation, Diarrhea, Rectal bleeding, Black stools, Bloody stools, Nausea, Vomiting - Genitourinary Genitourinary: denies: Dysuria - Musculoskeletal Musculoskeletal: reports: Back pain. denies: Muscle pain, Joint swelling - Integumentary Integumentary: denies: Rash - Neurological Neurological: denies: General weakness, Focal weakness, Headache, Dizziness, Numbness, Pre-existing deficit, Abnormal gait, Seizures, Incoordination, Slurred speech - Psychiatric Psychiatric: denies: Depression - Hematologic/Lymphatic Hematologic/Lymphatic: denies: Anemia Exam - Vital Signs Vital Signs: Vital Signs x48h Temp Pulse Resp BP Pulse Ox 01/05/20 13:00 80 16 129/85 H 100 01/05/20 11:54 36.3 C L 80 18 137/95 H 100 - Physical Exam General Appearance: positive: No acute distress, Alert. negative: Lethargic Eyes Bilateral: positive: Normal inspection, PERRL, No lid inflammation ENT: positive: ENT inspection nml, No signs of dehydration. negative: Dry mucous membranes Neck: positive: Nml inspection, Thyroid nml. negative: Thyromegaly, Stiff neck, Tracheal deviation Respiratory: positive: Chest non-tender, No respiratory distress, Breath sounds nml. negative: Wheezes, Rales, Rhonchi Cardiovascular: positive: Regular rate & rhythm, No murmur. negative: Tachycar remi, Bradycardia, Systolic murmur, Diastolic murmur Peripheral Pulses: positive: 2+ Abdomen: positive: Non-tender, Nml bowel sounds, No distention. negative: Tenderness, Guarding, Rebound Back: positive: Nml inspection. negative: CVA tenderness (R), CVA tenderness (L) Skin: positive: Color nml, No rash, Warm, Dry. negative: Cyanosis, Diaphoresis, Pallor Extremities: positive: Non-tender, Nml appearance. negative: Calf tenderness Neurologic/Psychiatric: positive: Oriented x3, Motor nml, Sensation nml, Mood/affect nml. negative: Weakness, Sensory loss, Facial droop, Slurred/abnml speech, Depressed mood/affect Conclusion/Plan - Problem List (1) UTI (urinary tract infection) Conclusion/Plan: Urinalysis review patient has urine tract infection. we will continue Rocephin, Urine culture is pending, we will follow-up Qualifiers: Urinary tract infection type: acute cystitis Hematuria presence: without he maturia Qualified Code(s): N30.00 - Acute cystitis without hematuria (2) Fall Conclusion/Plan: Patient has a fall in the home but the patient reported she denied loss conscious. CAT scan of spinal found patient has L3 Acute compression fracture. We will consult with physical therapist and occupational therapist, Continue fall precaution. (3) Lumbar compression fracture Conclusion/Plan: CAT scan of spinal show patient had L3 acute compression fracture. Spinal surgeon was called by ER from [facility] which surgeon suggestion patient was not a candidate for surgery. Patient reported she has normal bowel movement and urination. She denies numbness or weakness in her lower extremities. We will continue pain control, continue physical therapist and occupational therapist. Qualifiers: Encounter type: initial encounter Lumbar vertebra fracture level: L3 Qualified Code(s): S32.030A - Wedge compression fracture of third lumbar vertebra, initial encounter for closed fracture (4) Need for transition social worker intervention Conclusion/Plan: Patient was report she had un-safety living environment. social work was consulted to help pt (5) Glaucoma Conclusion/Plan: stable, continue home meds - Lab Results Fish Bones: 01/06/20 06:05 01/06/20 06:05 Core Measures - Anticipated LOS I expect patient to be DC'd or transferred within 96 hours.: Yes - DVT/VTE - Prophylaxis VTE/DVT Device ordered at admit?: Yes VTE/DVT Prophylaxis med ordered at admit?: Yes
--- NOTE | 2020-01-05 17:19 | PHARMACY PROGRESS NOTE ---
- Best Possible Medication History Admit Date and Time: 01/05/20 1609 Processed by: Pharmacy Medication History completed: Yes Patient Interview: Completed Secondary Source(s): Physician records, Pharmacy records, Insurance records (PATIENT INTERVIEWED BY CREDIT OPERATIONS SPECIALIST. PATIENT SOMEWHAT ABLE TO CONFIRM EYEDROP MEDICATIONS ) As the person ultimately responsible for medication therapy, providers are able to order a medication from an existing home medication list in [facility] via the "Reconcile Routine" prior to Confirmation of that medication by support technician. Such practice is discouraged except when the physician, in their clinical ju dgment, deems that a medical need exists for a medication without regard to previous use.
[2020-01-05] MEDS: SODIUM CHLORIDE FLUSH 0.9% 10 ML SYRINGE IVP SCH ×2 (18:07→23:53)
[2020-01-05] MEDS: SODIUM CHLORIDE 0.9% 1,000 ML IV SCH (18:07)
[2020-01-05] MEDS: ACETAMINOPHEN 325 MG TABLET PO PRN (18:46)
[2020-01-05] MEDS ORDERED: TIMOLOL 0.5% OPHTH DROPS RIGHTEYE SCH (21:00)
[2020-01-05] MEDS ORDERED: BRIMONIDINE 0.2% OPHTH DROPS 5 ML RIGHTEYE SCH (21:00)
[2020-01-06] MEDS: ACETAMINOPHEN 325 MG TABLET PO PRN (02:36)
[2020-01-06] MEDS: SODIUM CHLORIDE 0.9% 1,000 ML IV SCH (06:01)
[2020-01-06 06:24] LABS: BASOPHILS % (AUTO) 0.7 %; EOSINOPHILS % (AUTO) 2.4 %; HGB - HEMOGLOBIN 11.7 g/dL (12.0-16.0); LYMPHOCYTES % (AUTO) 30.3 %; MEAN CORPUSCULAR HEMOGLOBIN 36.3 pg (27.0-31.0); MEAN CORPUSCULAR HGB CONC 34.2 g/dL (32.0-36.0); MEAN CORPUSCULAR VOLUME 106.2 fL (81.0-99.0); MEAN PLATELET VOLUME 10.2 fL (7.9-10.8); MONOCYTES % (AUTO) 10.5 %; NEUTROPHILS % (AUTO) 56.1 %; PLT - PLATELET COUNT 182 10^3/uL (130-450); RED BLOOD COUNT 3.22 10^6/uL (4.20-5.40); RED CELL DISTRIBUTION WIDTH 15.1 % (12.0-15.0); WHITE BLOOD COUNT 2.9 x10^3/uL (4.8-10.8)
[2020-01-06 06:29] LABS: ABNORMAL LYMPHS % (MANUAL) 0 %
[2020-01-06 06:38] LABS: ALBUMIN 3.4 g/dL (3.2-5.5); ALBUMIN/GLOBULIN RATIO 1.1 (1.0-2.2); BILIRUBIN,TOTAL 1.5 mg/dL (0.2-1.0); CALCIUM 8.5 mg/dL (8.5-10.3); CREATININE 0.6 mg/dL (0.4-1.0); MAGNESIUM 1.8 mg/dL (1.7-2.8); TOTAL PROTEIN 6.4 g/dL (6.7-8.2)
[2020-01-06] MEDS ORDERED: PANTOPRAZOLE 40 MG TABLET PO SCH (07:00)
[2020-01-06 07:27] LABS: BAND NEUTROPHILS % (MANUAL) 1 %; DIFFERENTIAL COMMENT MANUAL DIFFERENTIAL; LYMPHOCYTES # (MANUAL) 0.8 10^3/uL (1.5-3.5); LYMPHOCYTES % (MANUAL) 23 %; MONOCYTES # (MANUAL) 0.3 10^3/uL (0.0-1.0)
[2020-01-06] MEDS ORDERED: POTASSIUM CHLORIDE 20 MEQ TABLET PO ONE (08:16)
[2020-01-06] MEDS ORDERED: ENOXAPARIN 40 MG/0.4 ML SYRINGE SUBQ SCH (09:00)
[2020-01-06] MEDS ORDERED: cefTRIAXone 2 GM in SODIUM CHLORIDE 0.9% MINIBAG 100 ML IV SCH (09:00)
--- NOTE | 2020-01-06 09:08 | DISCHARGE SUMMARY ---
Discharge Summary Admit Date: 01/05/20 Discharge Date: 01/06/20 Discharging Provider: Sergey Cruz Primary Care Provider: Julia Payne Discharge Disposition: 07 Against Medical Advice Discharge Facility Name: home - DIAGNOSES Discharge Diagnoses with Status of Each Condition: (1)AMA Patient is alert and orientated plus three. pt want to go home, She want to sign AMA. Nurse and I explain to pt the risk of AMA, pt state she understood and still want to sign AMA and left hospital. I prescribed antibiotics Cipro for her UTI treatment course. pt walk and denies back pain. (1) UTI (urinary tract infection) pt sign AMA, Cipro is prescribed for pt (2) Fall pt sign AMA to go home. (3) Lumbar compression fracture pt walk and denies back pain (4) Need for nursing home social worker intervention pt sign AMA and left hospital. social services met on yesterday. (5) Glaucoma stable. - HPI History of Present Illness: This is a 74-year-old female With past medical history significant for glucoma, arthritis, kidney stone, who brought into the emergency department via EMS for evaluation of her fall. Patient is alert and orientated. She report she was bending over and fell onto the ground. she denies Loss of consciousness. then she reports that she has had low back pain. Patient thinks that she may have fallen about 3 days ago. she is easy forgetful. Patient states that she lives by herself, no family member, she has no child. Pt report there is a men looking at her through the windows. She is concerned her safety to live alone anymore but she also state she had a very good neighbour to help her "that is fine." manufacturing worker was consulted by ER to help pt. CAT scan of spinal show patient has acute appearing compression fracture of L3. spine surgeon in [facility] was consulted by ER. pt is not a good candidate for a TLSO brace. Surgeon also does not feel that surgery is indicated at this time. pt is okay to be discharged with appropriate analgesia and activity as tolerated. Urinalysis revealed patient has urinary tract infection. Discussed the care goal with the patient, patient stated she needed DNR. - HOSPITAL COURSE Hospital Course: Patient was admitted for evaluation of a fall in the home. Patient was found to have UTI also. CAT scan of spinal cord show patient had an acute L3 compression fracture. Spine surgeon in [facility] was called by the ER, patient was not a candidate for surgery. Patient was treated with antibiotics. Patient also reported her concern about her safety living situation. Social work was consulted and talked with patient on yesterday. Patient A&O x4 when questioned. today morning, Patient got out of bed, pulled out IV, pulled off tele and walked to the bathroom by the time the [employer]EN[employer] B[employer]ING F[employer]DER was able to get in the room. When RN came in and patient stated that she would like to sign an AMA form and go home. RN and I come to see the patient. Patient is alert and orientated plus 4. We discussed what we can do any more to let pt had enjoyable journey in the hospital, and explained to the patient the risk of signed AMA. Patient still wanted to sign the AMA and left the hospital. Patient is prescribed antibiotics Cipro for treated UTI. - ALLERGIES Allergies/Adverse Reactions: Allergies Allergy/AdvReac Type Severity Reaction Status Date / Time No Known Drug Allergies Allergy Verified 01/05/20 11:54 - MEDICATIONS Home Medications: Ambulatory Orders Medication Instructions Recorded Confirmed Brimonidine 0.2% Ophth Drops 1 drops RIGHTEYE BID 01/05/20 01/05/20 [Alphagan P 0.2% Ophth Drops] Timolol 0.5% Ophth Drops [Timoptic 1 drops RIGHTEYE BID 01/05/20 01/05/20 0.5% Ophth Drops] - PHYSICAL EXAM AT DISCHARGE General Appearance: positive: No acute distress, Alert. negative: Lethargic Physical Exam Other/Comments: pt signed AMA and left hospital - LABS Result Diagrams: 01/06/20 06:05 01/06/20 06:05 - FOLLOW UP Follow Up: Patient signed AMA and left hospital, and the patient is prescribed antibiotics Cipro to treat her UTI - TIME SPENT Time Spent in Discharge (Minutes): 30
[2020-01-06 09:32] VITALS: BP 155/99
== END 2020-01-06 10:05 | disposition left against medical advice (07) | DRG 552 ==
LOC: ED 11:46 → MS2 16:07
PROVIDERS: ADMIT Nurse Practitioner Gerontology; ATTEND Nurse Practitioner Gerontology
DX: S32.030A Wedge compression fracture of third lumbar vertebra, initial encounter for closed fracture (principal); N30.00 Acute cystitis without hematuria; R41.82 Altered mental status, unspecified; X58.XXXA Exposure to other specified factors, initial encounter; F03.90 Unspecified dementia, unspecified severity, without behavioral disturbance, psychotic disturbance, mood disturbance, and anxiety; M48.061 Spinal stenosis, lumbar region without neurogenic claudication; W19.XXXA Unspecified fall, initial encounter; M19.90 Unspecified osteoarthritis, unspecified site; Y92.009 Unspecified place in unspecified non-institutional (private) residence as the place of occurrence of the external cause; H40.9 Unspecified glaucoma; Z66 Do not resuscitate; M85.88 Other specified disorders of bone density and structure, other site; Z74.2 Need for assistance at home and no other household member able to render care; Z79.899 Other long term (current) drug therapy; Z87.891 Personal history of nicotine dependence
CPT/HCPCS: 36415; 70450; 71045; 72100; 72131; 80053; 81001; 82550; 83690; 83735; 85025; 87086; 87181; 96365; 99285; A9270; 81003

== ENCOUNTER 2020-03-25 21:15 | Outpatient (CLI) | payer MEDICARE, OTHER | END 2020-03-25 21:16 | disposition critical access hospital (66) | LOC: EMS 21:15 | PROVIDERS: ATTEND Surgery | DX: R53.1 Weakness (principal); R41.0 Disorientation, unspecified; R52 Pain, unspecified | CPT/HCPCS: A0425; A0429 ==

== ENCOUNTER 2020-03-25 21:51 | Emergency (ER) | payer MEDICARE, OTHER ==
[2020-03-25] MEDS ORDERED: SODIUM CHLORIDE 0.9% 1,000 ML IV STA (22:55)
[2020-03-25 23:05] LABS: BASOPHILS % (AUTO) 0.8 %; EOSINOPHILS # (AUTO) 0.1 10^3/uL (0.0-0.7); HGB - HEMOGLOBIN 13.2 g/dL (12.0-16.0); LYMPHOCYTES # (AUTO) 0.9 10^3/uL (1.5-3.5); LYMPHOCYTES % (AUTO) 18.9 %; MEAN CORPUSCULAR HEMOGLOBIN 37.4 pg (27.0-31.0); MEAN CORPUSCULAR HGB CONC 33.9 g/dL (32.0-36.0); MEAN CORPUSCULAR VOLUME 110.2 fL (81.0-99.0); MEAN PLATELET VOLUME 9.3 fL (7.9-10.8); MONOCYTES # (AUTO) 0.5 10^3/uL (0.0-1.0); MONOCYTES % (AUTO) 10.4 %; NEUTROPHILS # (AUTO) 3.3 10^3/uL (1.5-6.6); NEUTROPHILS % (AUTO) 68.7 %; PLT - PLATELET COUNT 199 10^3/uL (130-450); RED BLOOD COUNT 3.53 10^6/uL (4.20-5.40); RED CELL DISTRIBUTION WIDTH 14.6 % (12.0-15.0); WHITE BLOOD COUNT 4.8 x10^3/uL (4.8-10.8)
[2020-03-25 23:21] LABS: ALBUMIN 4.4 g/dL (3.2-5.5); ALBUMIN/GLOBULIN RATIO 1.4 (1.0-2.2); BILIRUBIN,TOTAL 1.1 mg/dL (0.2-1.0); CALCIUM 9.1 mg/dL (8.5-10.3); CREATININE 0.5 mg/dL (0.4-1.0); TOTAL PROTEIN 7.5 g/dL (6.7-8.2)
[2020-03-25 23:26] LABS: PLATELET ESTIMATE, MANUAL NORMAL (130-450,000) (NORMAL); PLATELET MORPHOLOGY NORMAL APPEARANCE (NORMAL); RBC MORPHOLOGY (MULTIPLE) 2+ MACROCYTOSIS (NORMAL)
[2020-03-26 00:29] LABS: BILIRUBIN,URINE NEGATIVE (NEGATIVE); GLUCOSE, URINE (UA) NEGATIVE (NEGATIVE); KETONES,URINE (UA) 15 mg/dL (NEGATIVE); LEUKOCYTE ESTERASE, URINE NEGATIVE (NEGATIVE); NITRITE,URINE POSITIVE (NEGATIVE); OCCULT BLOOD,URINE NEGATIVE (NEGATIVE); PROTEIN,URINE NEGATIVE (NEGATIVE); UROBILINOGEN,URINE 0.2 (NORMAL) E.U./dL (NORMAL)
[2020-03-26 00:49] LABS: CLARITY,URINE SL. CLOUDY (CLEAR)
[2020-03-26 00:50] LABS: BACTERIA,URINE Many /HPF (None Seen); RBC,URINE None Seen /HPF (0-5); SQUAMOUS EPITHELIAL CELL,UR MOD Squamous (<= Few)
--- NOTE | 2020-03-26 06:55 | ED Physician Documentation ---
History of Present Illness - Stated complaint Stated Complaint: LEFT RIB PAIN - Chief complaint Chief Complaint: Neuro - History obtained from History obtained from: Patient - Additonal information Additional information: Patient is brought to the emergency department by EMS after a concerned neighbor called and said that the patient has been taking falls at home and seems to be more paranoid than usual. The patient has a longstanding history of dementia and has been seen here for this as well as been evaluated by other providers and home health personnel for similar issues. The patient states that she knows she has some dementia but that she likes to live at home. She states that she was hiding in the couch because she saw me on looking her window. Review of records reveals that the last time the patient was here, she was trying to get away from somebody she saw looking at her through the window, and this caused her to trip and fall. The patient has also previously had record of taking multiple falls. The patient apparently has a POA, though that person seems to be difficult to reach at some time. Patient has no children and is not currently . She lives at home her house, and does state that the neighbor checks in on her. She cannot tell me who brings her groceries. Only complaint here in the ED is that she remembers feeling a "lump" on her left arm, up near the shoulder, several days ago. She states that since then, she has had pain going down her left arm and all the way down her left side and into her chest and abdomen. She denies falling and hitting that side that she knows of. No fevers or chills. She states the lump eventually just went away, but the pain has remained. Review of Systems Ten Systems: 10 systems reviewed and negative Constitutional: reports: Reviewed and negative Eyes: reports: Reviewed and negative Ears: reports: Reviewed and negative Nose: reports: Reviewed and negative Throat: reports: Reviewed and negative Cardiac: reports: Reviewed and negative Respiratory: reports: Other (Pain left rib cage.) GI: reports: Reviewed and negative : reports: Reviewed and negative Skin: reports: Reviewed and negative Musculoskeletal: reports: Extremity pain Neurologic: reports: Reviewed and negative Psychiatric: reports: Reviewed and negative Endocrine: reports: Reviewed and negative Immunocompromised: reports: Reviewed and negative PD PAST MEDICAL HISTORY - Past Medical History Cardiovascular: Other Respiratory: None Endocrine/Autoimmune: None GI: Other : Kidney stones, Other HEENT: Glaucoma, Other Psych: None Musculoskeletal: Osteoarthritis Derm: Other - Past Surgical History Past Surgical History: Yes General: Appendectomy 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: 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 - Present Medications Home Medications: Ambulatory Orders Medication Instructions Recorded Confirmed Brimonidine 0.2% Ophth Drops 1 drops RIGHTEYE BID 01/05/20 01/05/20 [Alphagan P 0.2% Ophth Drops] Timolol 0.5% Ophth Drops [Timoptic 1 drops RIGHTEYE BID 01/05/20 01/05/20 0.5% Ophth Drops] Ciprofloxacin HCl [Cipro] 500 mg PO BID #10 tablet 01/06/20 - Allergies Allergies/Adverse Reactions: Allergies Allergy/AdvReac Type Severity Reaction Status Date / Time No Known Drug Allergies Allergy Verified 01/05/20 11:54 - Social History Does the pt smoke?: No Smoking Status: Never smoker PD ED PE NORMAL - Vitals Vital signs reviewed: Yes - General General: Alert and oriented X 3, No acute distress - HEENT HEENT: Atraumatic, PERRL, EOMI, Moist mucous membranes - Neck Neck: Supple, no meningeal sign - Cardiac Cardiac: RRR, No murmur, Strong equal pulses - Respiratory Respiratory: No respiratory distress, Clear bilaterally, Other - Abdomen Abdomen: Soft, Non tender, Non distended - Back Back: No spinal TTP (Mild chest wall tenderness over left lateral rib cage.) - Derm Derm: Normal color, Warm and dry, No rash - Extremities Extremities: No deformity, No edema, No calf tenderness / cord, Other (Tenderness palpation over the patient's left shoulder, without edema, skin change, fluctuance, or induration. No deformity of the bone.) - Neuro Neuro: Other (Alert and answers questions mostly appropriately, but occasionally will insert irrelevant and even bizarre information into her answers.) - Psych Psych: Normal mood, Normal affect Results - Vitals Vitals: Vital Signs - 24 hr 03/25/20 03/26/20 03/26/20 22:00 00:15 01:17 Temperature 37.2 C Heart Rate 84 84 90 Respiratory 20 18 16 Rate Blood Pressure 182/127 H 190/133 H 193/109 H O2 Saturation 100 100 100 03/26/20 03/26/20 03/26/20 02:34 04:00 06:00 Temperature Heart Rate 80 78 78 Respiratory 16 16 16 Rate Blood Pressure 125/71 117/73 120/86 H O2 Saturation 98 99 97 Oxygen O2 Source Room air - Labs Labs: Laboratory Tests 03/25/20 03/25/20 03/26/20 23:01 23:01 00:17 WBC 4.8 RBC 3.53 L Hgb 13.2 Hct 38.9 MCV 110.2 H MCH 37.4 H MCHC 33.9 RDW 14.6 Plt Count 199 MPV 9.3 Neut # (Auto) 3.3 Lymph # (Auto) 0.9 L Weakley # (Auto) 0.5 Eos # (Auto) 0.1 Baso # (Auto) 0.0 Absolute Nucleated RBC 0.00 Nucleated RBC % 0.0 Manual Slide Review Indicated WBC Morphology NORMAL APPEARANCE Platelet Estimate NORMAL (130-450,000) Platelet Morphology NORMAL APPEARANCE RBC Morph Micro Appear 2+ MACROCYTOSIS Sodium 132 L Potassium 3.3 L Chloride 98 L Carbon Dioxide 25 Anion Gap 9.0 BUN 19 Creatinine 0.5 Estimated GFR (MDRD) 120 Glucose 93 Calcium 9.1 Total Bilirubin 1.1 H AST 32 ALT 24 Alkaline Phosphatase 63 Total Protein 7.5 Albumin 4.4 Globulin 3.1 Albumin/Globulin Ratio 1.4 Urine Color YELLOW Urine Clarity SL. CLOUDY Urine pH 7.0 Ur Specific [place] 1.015 Urine Protein NEGATIVE Urine Glucose (UA) NEGATIVE Urine Ketones 15 H Urine Occult Blood NEGATIVE Urine Nitrite POSITIVE H Urine Bilirubin NEGATIVE Urine Urobilinogen 0.2 (NORMAL) Ur Leukocyte Esterase NEGATIVE Urine RBC None Seen Urine WBC 4-5 Ur Squamous Epith Cells MOD Squamous H Urine Bacteria Many H Ur Microscopic Review INDICATED Urine Culture Comments NOT INDICATED PD MEDICAL DECISION MAKING - ED course Complexity details: reviewed old records, reviewed results, re-evaluated patient, considered differential, d/w patient ED course: The patient was fairly well-appearing and did not demonstrate evidence of trauma. I was not entirely certain what was causing her left-sided pain, so I did obtain an x-ray of the ribs and chest, which was unremarkable. I was concerned about this patient's competence to make decisions and to be able to care for herself at home. As such, I did get basic labs and urinalysis on her and consulted social work. At this point in time, patient has been calm and cooperative and is awaiting social work consult in the morning to determine the best outpatient situation for her. No acute condition has been identified at this time. Patient is signed out to oncoming emergency physician Dr. Mendoza ending social work evaluation and final disposition.
[2020-03-26] MEDS ORDERED: KETOROLAC 30 MG/ML VIAL IVP STA (08:11)
[2020-03-26] MEDS ORDERED: DEXAMETHASONE 10 MG/ML VIAL IVP STA (08:11)
--- NOTE | 2020-03-26 08:39 | XRAY Report ---
PROCEDURE: Ribs w/PA Chest LT INDICATIONS: rib pain, frequent falls TECHNIQUE: 3 views of the left ribs were acquired, along with a single view chest. COMPARISON: Prior chest plain films 01/05/2020. FINDINGS: Surgical changes and devices: Left humeral fracture fixation plate appears free of disruption, only p artially visualized.. Bones and chest wall: No fractures or dislocations. No suspicious bony lesions. Overlying soft tis sues appear unremarkable. Lungs and pleura: No pleural effusions or pneumothorax. Lungs appear clear. Mediastinum: Mediastinal contours appear normal. Heart size is normal. IMPRESSION: No acute trauma found. Prior left humeral fracture fixation, alignment normal. Reviewed by: Marcos Adams MD on 03/26/2020 8:38 AM PST Approved by: Marcos Adams MD on 03/26/2020 8:38 AM [facility] Station ID: [id number]
[2020-03-27] MEDS ORDERED: IBUPROFEN 400 MG TABLET PO STA (01:28)
[2020-03-27] MEDS ORDERED: LORazepam 0.5 MG TABLET PO STA (01:49)
[2020-03-27] MEDS ORDERED: ACETAMINOPHEN 325 MG TABLET PO STA (07:57)
[2020-03-27 08:39] LABS: CALCIUM 9.5 mg/dL (8.5-10.3); CREATININE 0.6 mg/dL (0.4-1.0)
[2020-03-27 09:00] LABS: THYROID STIMULATING HORMONE 1.77 uIU/mL (0.34-5.60)
--- NOTE | 2020-03-27 11:46 | ED Physician Documentation ---
ED Addendum - Addendum Addendum: 03/27/20 11:44 The patient reportedly had an uneventful night with sleeping. This morning upon awakening she was a little agitated with a concern of people looking at her from behind curtains. No one was there. This is an alignment with the reports of her being concerned of people looking in her windows at home. She was having some slight discomfort in the side of the chest and given some Tylenol. She is also a at this point given half a milligram of Ativan to help with relaxing. She was directable verbally back into her bed. Social work is low talking with the patient in arranging further follow-up and disposition. We could consider telepsych for potential medication suggestions.
[2020-03-27 13:56] VITALS: BP 170/90
== END 2020-03-27 16:58 | disposition home or self-care (01) ==
LOC: EDUNIT# → SUPCPDRO 21:51 → ED 21:51
DX: S20.212A Contusion of left front wall of thorax, initial encounter (principal); W19.XXXA Unspecified fall, initial encounter; Z91.81 History of falling; Y92.009 Unspecified place in unspecified non-institutional (private) residence as the place of occurrence of the external cause; R41.0 Disorientation, unspecified; F03.90 Unspecified dementia, unspecified severity, without behavioral disturbance, psychotic disturbance, mood disturbance, and anxiety
CPT/HCPCS: 36415; 71101; 80048; 80053; 81001; 82607; 82652; 84443; 85025; 85651; 96374; 99284; A9270; 81003; 87086

== ENCOUNTER 2020-04-03 08:00 | Outpatient (CLI) | payer MEDICARE, OTHER ==
--- NOTE | 2020-04-03 13:04 | XRAY Report ---
PROCEDURE: Thoracic Spine 2 View INDICATIONS: BACK PAIN TECHNIQUE: 3 views of the thoracic spine were acquired. COMPARISON: None. FINDINGS: Bones: There is mild osteopenia. Kyphosis involving upper to midthoracic spine at approximately cente red at approximately T6 level with suggestion of age indeterminant anterior wedge compression deformi ty at T6 level and up to 50% loss of T6 vertebral body height anteriorly. Mild rightward scoliosis of thoracic spine centered at T6-7 level is also seen. No suspicious bony lesions. 12 pairs of ribs ar e noted, and appear intact where visualized. Soft tissues: No paravertebral stripe thickening. IMPRESSION: Osteopenia. Degenerative disc disease throughout thoracic spine. Age indeterminant anterior wedge com pression deformity at T6 level with up to 50% loss of T6 vertebral body height and mild to moderate k yphosis. Reviewed by: Eladio Saldaña MD on 04/03/2020 1:03 PM PST Approved by: Eladio Saldaña MD on 04/03/2020 1:03 PM PST Station ID: [id number]
--- NOTE | 2020-04-03 13:10 | XRAY Report ---
PROCEDURE: Lumbar Spine 2 View INDICATIONS: BACK PAIN TECHNIQUE: 3 views of the lumbar spine were acquired. COMPARISON: CT of lumbar spine dated 01/05/2020. FINDINGS: Bones: 5 [id number] vertebrae are present. There is straightening of normal lumbar lordosis. Ch ronic appearing anterior wedge compression deformities are again noted at T12, L2 and L4 levels uncha nged from prior studies. Subacute L3 anterior wedge compression deformity is again seen with interval further loss of vertebral body height anteriorly with now up to 75% loss of vertebral body height. D egenerative endplate changes throughout lumbar spine is again seen. Soft tissues: Overlying bowel gas pattern is normal. No suspicious soft tissue calcifications. IMPRESSION: 1. Subacute anterior wedge compression deformity at L3 level, with interval further loss of L3 verteb ral body height anteriorly and now up to 75% loss of L3 vertebral body heights. 2. Chronic appearing anterior wedge compression deformity at T12, L2 and L4 levels unchanged from pre vious study. 3. Degenerative disc disease throughout lumbar spine and lower thoracic spine. Reviewed by: Eladio Saldaña MD on 04/03/2020 1:09 PM PST Approved by: Eladio Saldaña MD on 04/03/2020 1:09 PM PST Station ID: [id number]
--- NOTE | 2020-04-03 13:11 | XRAY Report ---
PROCEDURE: Hip w/Pelvis 1V LT INDICATIONS: LEFT HIP PAIN TECHNIQUE: AP pelvis with lateral view(s) of the left hip(s). COMPARISON: None. FINDINGS: Bones: No fractures or dislocations. Pelvic ring appears intact. No suspicious bony lesions. Bilat eral hip joint osteoarthritic changes are seen. No evidence of avascular necrosis of femoral head. Soft tissues: The visualized bowel gas pattern is normal. Small calcifications are noted in bilatera l lower pelvis likely represent phleboliths. IMPRESSION: No acute left hip fracture or dislocation. Bilateral hip joint osteoarthritis. No evidenc e of avascular necrosis. Osteopenia. Reviewed by: Eladio Saldaña MD on 04/03/2020 1:09 PM PST Approved by: Eladio Saldaña MD on 04/03/2020 1:09 PM PST Station ID: [id number]
== END 2020-04-03 23:59 | disposition home or self-care (01) ==
LOC: DI.S 08:00
PROVIDERS: ATTEND Physician Assistant Medical
DX: M51.34 Other intervertebral disc degeneration, thoracic region (principal); M40.204 Unspecified kyphosis, thoracic region; M51.36 Other intervertebral disc degeneration, lumbar region; M48.55XA Collapsed vertebra, not elsewhere classified, thoracolumbar region, initial encounter for fracture; M85.89 Other specified disorders of bone density and structure, multiple sites; M16.0 Bilateral primary osteoarthritis of hip

== ENCOUNTER 2020-06-06 15:00 | Outpatient (CLI) | payer MEDICARE, OTHER ==
--- NOTE | 2020-06-06 20:28 | CONSULTATION NOTE ---
Palliative Care Consultation - Referral Referring Provider: Chaparrita GARCIA Time of Visit: 9428-1592 Referral setting: Assisted living Referral Reason: Dementia/Chronic Back pain/Osteopenia - Information Sources Records reviewed: Previous records reviewed History/Review of Systems obtained from: Patient, Family (spoke with cousin Elaine; nael), Caregiver (facility staff) Exam limitations: Clinical condition (patient with dementia; severe STM issues) - History of Present Illness Brief History of Present Illness: This is a 74-year-old woman who presents with dementia, who has had ongoing cognitive decline. She is also quite thin, known history of alcohol abuse, and has been having multiple falls with resulting fractures. Patient presents as pleasant, easy to engage, but is unable to really participate in any kind of history. She calls the event that led her to her current situation as "the smack". In reviewing her history it does look like in 2018 she presented with an L4 compression fracture, and severe spinal stenosis. She was seen by [facility] after she had spinal surgery on 12/17/2017. It is also documented that she had on 01/16 oh which 3 compression fracture with 50 to 60% of loss, and noted other areas of concern T12, L2, T6, and L4 through her x- rays. Her x-rays show severe osteopenia, kyphosis, and DJD both in the lumbar and thoracic spine. Patient had been living at home by herself, supported by neighbors, though obviously was needing more support with her worsening dementia. She was starting to have some paranoia, she has a repeated story that she was seen someone peering into her house, which really scared her. She was feeling like she was no longer safe, and end of 03/25/2020 was seen for left chest contusion and recurrent falls, and was placed at [facility] for respite. She did have another fall, developed acute pain, was seen by primary care provider, and was put on gabapentin 300 mg 3 times daily, she is on diclofenac 75 mg twice daily, and has slowly improved. She was seen by the [facility], unfortunately patient was unable to really participate it with her dementia, but they did recommend Reclast. She is also seen by telehealth through the clinics and put on donepezil 10 mg daily, in our conversation she still has some paranoid thinking, but seems to have settled in somewhat. Though she does think she is going to drive and return home after she quits with her "stumbling stage". I did call her DPOA, which is Elaine Lane who is a second cousin, . She knows some of her history but not extensive, she shares the patient has been living, in a house, she is always been a solitary sole, her house is now empty. She said Sridhar situation escalated, and is hoping she will settle in at [facility]. Both she and her cousin report her mother had Alzheimer's, but her cousin says it did have early onset at a young age. Original referral had, and patient was in acute pain, patient has settled in, does complain of pain across her lower back and has some pain behaviors when getting from sitting to standing, but she is able to ambulate. She has had weight gain at [facility] her you have dub visit 2/3 she was 115, she was 124 last weight at [facility]. She is getting regular meals, her friends have brought in wine, but they have been discouraged. Patient is quite upfront that she would drink a liter of wine a day, but of course she lasted the whole day starting at 10:00 into the evening. At this point time she says she is not drinking and she does not miss it unclear if this is true information. Medical/Surgical History - Past Medical History Respiratory: reports: None Neuro: Dementia Endocrine/Autoimmune: reports: None : reports: Kidney stones HEENT: reports: Glaucoma, Other (prosthetic left eye 2002 does not recall why) Psych: reports: None Musculoskeletal: reports: Osteoarthritis, Osteoporosis, Fatigue, Scoliosis, Chronic back pain Derm: reports: Other (hx of basal cell) MRSA Hx?: No - Past Surgical History General: reports: Appendectomy Ortho: reports: Spine surgery /[employer]: reports: Hysterectomy - Substance History Use: Uses substance without health or social issues: Tobacco (hx of use), Alcohol (reports one liter of wine a day at baseline;), Cannabis (hx of use) Social History - Living Situation Living arrangement: Assisted living Support System: Patient had previously been living by herself, unable to get any dates, she has had 3 marriages, her first marriage she did have a daughter whom she gave away. She cannot remember her friends names, and she is quite focused on swimming with dull friends. She was talking about taking a raft out into the sound to swim with the dolphins. 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 Patient is unable to really id entify why she is here at [facility], seems to have settled in. Family History - Family History Family History: Mother: , Alzheimer's Disease (father at 98; mother 88), Father: , Alzheimer's Disease Family History Comment/Other: has no siblings; had a daughter given up for adoption; her cousin reports her mother had early Alzheimers in her 50s Medications/Allergies - Medications Home Medications: Ambulatory Orders Medication Instructions Recorded Confirmed Brimonidine 0.2% Ophth Drops 1 drops RIGHTEYE BID 01/05/20 06/07/20 [Alphagan P 0.2% Ophth Drops] Timolol 0.5% Ophth Drops [Timoptic 1 drops RIGHTEYE BID 01/05/20 06/07/20 0.5% Ophth Drops] Acetaminophen [Tylenol] 650 mg PO TID 06/07/20 06/07/20 Cholecalciferol (Vitamin D3) 200 unit PO DAILY 06/07/20 06/07/20 [Vitamin D3] Cyanocobalamin (Vitamin B-12) 500 mcg PO DAILY 06/07/20 06/07/20 [Vitamin B-12 (500 mcg sublingual)] Diclofenac Sodium Dr [Voltaren] 75 mg PO DAILY 06/07/20 06/08/20 Donepezil HCl [Aricept] 10 mg PO DAILY 06/07/20 06/07/20 Multivitamin 1 tab PO DAILY 06/07/20 06/07/20 Turmeric/Turmeric Root Extract 4 cap PO DAILY 06/07/20 06/07/20 [Turmeric 450-50 mg Capsule] - Allergies Allergies/Adverse Reactions: Allergies Allergy/AdvReac Type Severity Reaction Status Date / Time No Known Drug Allergies Allergy Verified 01/05/20 11:54 Review of Systems - Constitutional Constitutional: reports: Fatigue, Weight gain (122 feb 124 Mar (md office 2 115)). denies: Fever, Chills - Eyes Eyes: reports: Vision loss, Other (prosthetic left eye) - Ears, Nose & Throat Ears, Nose & Throat: reports: Dental decay - Cardiovascular Cardiovascular: reports: Lightheadedness, Decr. exercise tolerance - Respiratory Respiratory: denies: SOB at rest - Gastrointestinal Gastrointestinal: reports: Good appetite. denies: Constipation (unsure), Nausea, Reflux/heartburn - Genitourinary Genitourinary: reports: Incontinence (new have urgency at night) - Musculoskeletal Musculoskeletal: reports: Back pain, Muscle aches, Stiffness, Limited range of motion, Muscle weakness, Joint pain (right knee) - Integumentary Integumentary: reports: Dryness - Neurological Neurological: reports: General weakness, Dizziness, Numbness, Memory problems (worsening; facility testing on admit MMSE ), Abnormal gait - Psychiatric Psychiatric: reports: Other (seen telepsych; titrating donepazil). denies: Depression, Anxiety - Endocrine Endocrine: reports: Intolerance to cold - Hematologic/Lymphatic Hematologic/Lymph: denies: Anemia, Recurrent infections - All Other Systems All Other Systems: reports: Other (limited given memory issues) Physical Exam - Vital Signs Temperature: 98.1 C Pulse Rate: 84 Respiratory Rate: 16 O2 Saturation: 99 Blood Pressure: 112/82 - Physical Exam General Appearance: positive: No acute distress, Alert, Cachetic Eyes Bilateral: positive: Normal inspection ENT: positive: No signs of dehydration, Other (poor dental hygiene) Neck: positive: Trachea midline, Other (kyphosis) Cardiovascular: positive: Regular rate & rhythm Respiratory: positive: No respiratory distress, Breath sounds nml, Diminished in bases Abdomen: positive: Soft Skin: positive: Pallor, Dryness Extremities: positive: No pedal edema, Other (difficulty getting from sitting to standing from low couch; gait slightly ataxic) Neurologic/Psychiatric: positive: Mood/affect nml, Disoriented to place ("this place"), Disoriented to time, Weakness Palliative Care - POLST Patient has POLST: Yes POLST Status: DNR, Selective Treatment Pain: Comment (see HPI) Tiredness/Fatigue: Moderate (4-6) Drowsiness/Sedation: Mild (1-3) Nausea: None Anorexia: Mild (1-3) Dyspnea: None Depression: None Anxiety: None Feelings of wellbeing/Perceived Quality of Life: Fair, Acceptable, Comment (wants to be home; and wants to drive) Sleep: Sleeps well Constipation: Comment (patient cannot recall; denies fullness) Performance Status: Patient at this point in time is ambulatory in her apartment, she does have both a wheelchair and a walker. Is able to get around. She does go down to meals per staff report, she reports she bathes independently. Though patient does not look like she has bathed for several days, she reports he takes a shower about every 3 days. She does not have assistance with personal care, she does have medication oversight, but patient is pretty much left for self. - Palliative Care Discussion: Patient does not seem in any kind of distress, nor does she have much insight into her current situation. She does understand that she cannot remember things, and believes that she has Alzheimer's, as her mother had. She does have significant amount of word finding, short-term memory issues, she does talk in circles. She is able to complete full sentences, but not asked to start any specific questions related to her past or series of events that had led her here. She does not seem distressed, may be somewhat perplexed. She does feel well supported by her cousin Elaine, they do speak often. She does admit to being fearful of falling, she does perseverate on her car, but reinforced given her memory and dementia she is not supposed to drive. Results - Lab Results Lab results reviewed: Yes Lab and Imaging Results: reviewed labs from 2/3 Electrolytes within normal range only abnormality was BUN at 28, thyroid normal at 1.857, B12 greater than 1500, vitamin D 23.5, monoclonal protein panel normal, Impression and Recommendations - Palliative Care Impression: This is a bit of a free spirit 74-year-old woman who presents to palliative care, for pain and symptom management. Patient is past her acute pain management episode, is improving and doing fairly well on current regimen though is having some dizzyness. Her actual more difficult problem is her Alzheimer's, high risk for falls, and complex social situation. Palliative care to provide support and anticipatory guidance, in her current setting. Recommendations/Counseling Done: 1. Acute on chronic pain. This is multifactorial, she does appear to be improving from her acute pain from her fall. She is still with underlying chronic pain behaviors. She is able to ambulate, her reports of pain can be quite fluctuating both to staff and even within the same visit today. She has very few distractions in her current apartment, and may benefit from outpatient therapy, but will reevaluate at next visit. She is to receive Reclast, suspect this is been difficult to arrange secondary to her dementia, did contact [facility] and asked them to reach out to her cousin Rukhsana to be able to set up pending appointment. Will leave patient gabapentin 300 mg 3 times daily for now, may consider switching to pregabalin to decrease side effects, if dizziness remains persistent. Will decrease diclofenac which was started acutely to daily given her advanced age and history of continuing possibly of drinking given risk for GI bleed. We will leave her on her current dosing of 3 times daily acetaminophen 650 mg as well. Staff can apply "icy hot", will order for twice a day, so patient feels staff is addressing her pain. She does get some relief with heat per her report. 2. Dementia with behavioral disturbances. Patient does have a history of paranoia, anxiety, intermittent agitation. It is unclear if her behaviors have improved on the donepezil, is being managed by psych. Suspects patient's dementia is Alzheimer's exacerbated with her history of alcohol abuse over multiple years. She is reporting some mild incontinence, unclear how functional she is with bathing and dressing as she at this point does not have assistance. Does look like she has been in the same close for several days, will continue to monitor. 3. Weight loss. Patient has gained it looks like around 7 to 10 pounds. They are giving her daily Ensure, patient is probably doing better with regular frequent meals offered and not needing to do meal prep. We will continue to monitor, suspect she would benefit from stills more weight gain. Given loss of muscle mass, will see if she is appropriate for physical therapy and future visit. 4. Alcoholism. Patient has long history gleaned from our conversation of daily drinking. Given descriptions of her behaviors on and off suspect she has either been drinking and or in withdrawals. Have recommended given patient's m edication she is on currently, fall risk, that we limit access to alcohol and discourage friends bringing them. Rukhsana will follow up with her friends regarding this as well. It is not being supplied by the [facility]. 5. Advanced care planning. Patient does have a POLST in place that she completed in 2008, with DNR and comfort measures, with her provider Dr. Duran at the time. She also has DPOA that designates Mickie as her DPOA. Did have a long discussion with Mickie, at this point patient does not demonstrate any ability to return home given her worsening cognition, high risk for falls, and both functional and cognitive decline. Recommended considering depending on what makes sense for her is DPOA, could move her to [place]. She reports so the cost are much higher down there, she will continue to consider how best to provide her support. Counseling provided regarding anticipatory guidance and expected course of decline. 75 minutes with greater than 50% of this done in evaluation, counseling for symptom management, coordination of care with DPOA and facility staff.
== END 2020-06-06 15:01 | disposition home or self-care (01) ==
LOC: PC 15:00
PROVIDERS: ATTEND Nurse Practitioner Adult Health
DX: Z51.5 Encounter for palliative care (principal); G89.29 Other chronic pain; F03.91 Unspecified dementia, unspecified severity, with behavioral disturbance; R63.4 Abnormal weight loss; F10.20 Alcohol dependence, uncomplicated; Z87.891 Personal history of nicotine dependence; Z66 Do not resuscitate

== ENCOUNTER 2020-06-29 13:00 | Outpatient (CLI) | payer MEDICARE, OTHER ==
--- NOTE | 2020-06-29 17:00 | CONSULTATION NOTE ---
Palliative Care Follow Up - Referral Referring Provider: Nelia GARCIA Time of Visit: [id number] Referral setting: Assisted living Referral Reason: Dementia/Chronic Back Pain/Osteopenia/Insomina - Information Sources Records reviewed: Previous records reviewed History/Review of Systems obtained from: Patient, Nursing Exam limitations: Clinical condition (patient with significant memory problems; poor insight into condition) - History of Present Illness Update Brief HPI Update: This is a 74-year-old woman who presents with worsening dementia, has been living at [facility] since February 2020 secondary to fall and worsening pain. She had been living actually unsafely in her home, with frequent falls, she does have history of known alcohol abuse, had been having multiple falls over the last couple years resulting in fractures. Including an L4 compression failure that resulted in spinal surgery in 11/2017. She does have some awareness she is there because of a fall, and really does enjoy her room, and talking to people. She does not complain of any distress in her current situation. She though has announced to me that she is going home at the end of the month. Though she cannot tell me the names of her "neighbors" who are going to help her transition home, she cannot tell me what that might look like, how she might cook how she might shop or be able to take her medicines. On arrival. Patient had taken out her eye, she reports it was goopy. She reports she has not been sleeping, did not sleep well last night. She says she is bathing, though does not look like she has washed her hair for several days. She is ambulatory, is no longer needing the walker, she reports she sits in the wheelchair and scoots, she is going down for meals. She reports she is painful, but it is tolerable. According to the record she is still not gone in for her Reclast. She reports she is doing some exercises in bed, recognizing she needs to have better posture, she does have fairly severe kyphosis. She continues with some paranoid thinking, when recalling again her triggering event, about seeing someone in her windows. Discussed concern for her returning, being safe on her own, and being able to manage if someone did approach her she was fearful. She does feel safe at [facility]. She has been eating better, she has had some weight gain. Staff thinks that she still been drinking, patient reports occasional sips, I do not see any wine or evidence of drinking in the apartment. Did ask staff to take note, as she has been instructed not to have any alcohol with her medications. Patient is quite upfront she had been drinking a liter of wine prior to this, but reports it does not taste is good and she does not want to get "wobbly". 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 Limited history given patient's memory and cousins knowledge of patient's health Social History - Living Situation Living arrangement: Assisted living Support System: Patient had been previously living by herself, had had 3 marriages, has a daughter whom she gave away. She cannot remember her friends names, she reports she has been out with her neighbors to her home, though was unable to tell me why she went there. She has had quite a colorful life, and feels like she is ready to go whenever her time comes. She has a second cousin Rukhsana, who is her DPOA. I have left several messages in hopes to problem solve this current situation. Patient has given [facility] months notice, though cannot really tell me the steps how she would get back home hence how to secure help when she gets there. She is happy at [facility], unclear how committed she is to this transition, she does have some insight that if she falls again or does not feel well that she feels safe there, and like's her room. Medications/Allergies - Medications Home Medications: Ambulatory Orders Medication Instructions Recorded Confirmed Brimonidine 0.2% Ophth Drops 1 drops RIGHTEYE BID 01/05/20 06/07/20 [Alphagan P 0.2% Ophth Drops] Timolol 0.5% Ophth Drops [Timoptic 1 drops RIGHTEYE BID 01/05/20 06/07/20 0.5% Ophth Drops] Acetaminophen [Tylenol] 650 mg PO TID 06/07/20 06/07/20 Cholecalciferol (Vitamin D3) 200 unit PO DAILY 06/07/20 06/07/20 [Vitamin D3] Cyanocobalamin (Vitamin B-12) 500 mcg PO DAILY 06/07/20 06/07/20 [Vitamin B-12 (500 mcg sublingual)] Diclofenac Sodium Dr [Voltaren] 75 mg PO DAILY 06/07/20 06/08/20 Donepezil HCl [Aricept] 10 mg PO DAILY 06/07/20 06/07/20 Multivitamin 1 tab PO DAILY 06/07/20 06/07/20 Turmeric/Turmeric Root Extract 4 cap PO DAILY 06/07/20 06/07/20 [Turmeric 450-50 mg Capsule] - Allergies Allergies/Adverse Reactions: Allergies Allergy/AdvReac Type Severity Reaction Status Date / Time No Known Drug Allergies Allergy Verified 01/05/20 11:54 Review of Systems - Constitutional Constitutional: reports: Fatigue, Weakness, Weight gain (122 feb 124 Mar (md office 05/02 115)). denies: Fever, Chills - Eyes Eyes: reports: Vision loss, Other (prosthetic left eye; had out said "goopy"; no s/s of infection in eye socket noted) - Ears, Nose & Throat Ears, Nose & Throat: reports: Dental decay - Cardiovascular Cardiovascular: reports: Lightheadedness, Decr. exercise tolerance - Gastrointestinal Gastrointestinal: reports: Good appetite. denies: Constipation (unsure), Nausea, Reflux/heartburn - Genitourinary Genitourinary: reports: Incontinence (new have urgency at night; using depends) - Musculoskeletal Musculoskeletal: reports: Back pain, Muscle aches, Stiffness, Limited range of motion, Muscle weakness, Joint pain, Transfer issues (using wheelchair to travel in facility; pulls or feet walks) - Integumentary Integumentary: reports: Dryness - Neurological Neurological: reports: General weakness, Numbness, Memory problems (worsening; facility testing on admit MMSE 17/30), Abnormal gait - Psychiatric Psychiatric: reports: Other (seen telepsych; titrating donepazil). denies: Depression, Anxiety - Endocrine Endocrine: reports: Intolerance to cold - All Other Systems All Other Systems: reports: Other (limited given memory issues) Physical Exam - Vital Signs Temperature: 98.2 C Pulse Rate: 75 Respiratory Rate: 18 O2 Saturation: 98 (ra @ rest) Blood Pressure: 112/62 - Physical Exam General Appearance: positive: No acute distress, Alert, Cachetic Eyes Bilateral: positive: Normal inspection ENT: positive: No signs of dehydration, Other (poor dental hygiene) Neck: positive: Trachea midline, Other (kyphosis) Cardiovascular: positive: Regular rate & rhythm Respiratory: positive: No respiratory distress, Breath sounds nml, Diminished in bases Abdomen: positive: Soft Skin: positive: Pallor, Dryness Extremities: positive: No pedal edema, Other (difficulty getting from sitting to standing from low couch; gait slightly ataxic) Neurologic/Psychiatric: positive: Mood/affect nml, Disoriented to place ("this place"), Disoriented to time, Weakness Palliative Care - POLST Patient has POLST: Yes POLST Status: DNR Pain: Pain improved, Location (low back; multiple joints), Severity (mild-mod) Tiredness/Fatigue: Moderate (4-6) (reports not sleeping) Drowsiness/Sedation: Mild (1-3) Nausea: None Anorexia: None Dyspnea: None Depression: None Anxiety: None Feelings of wellbeing/Perceived Quality of Life: Good, Acceptable, Improved Sleep: Sleeps poorly Constipation: No Performance Status: Patient is ambulatory in her room, she is no longer using the walker. She reports she does use a wheelchair to pull herself around in the halls, and go down to meals. Though she does not recall going down to meals on a regular basis, staff reports this. Patient reports she bathes, but it is "chilly" so not very often. We will put her at a PPS of 60% - Palliative Care Discussion: Patient is quite pleasant, engaged, seems happy to see me but does not really recognize who I am or why I am there. She is sharing that she is going home, but when pressed however this transitional happened she does not have a plan, she reports she has neighbors, but cannot recall their names, but has about how she was going to eat, she says what I can "cook for myself". But unable to really it expresses steps that would need to happen, asked about grocery shopping, she would go with her medical list. When asked about medications, she said she just keep taking what is there. Though she has multiple [id number] medication boxes on her table, she cannot tell me what they are for other than the eyedrops. When asked her about her safety, particularly given her paranoia about the man looking in her window before, she reports she is just going to ignore him. I did express my concerns about her safety and being there by herself, she had a fall about anyone finding her, she seems to be confident people would be checking on her. Spoke with staff, she has indeed put in her letter, but does not know how that came about. Requested they monitor if she has been drinking, or other things as far as her safety. If patient is planning to follow through, unclear exactly how that is going to happen. I did leave a message for her DPOA, for further conversation, patient would warrant an APS referral as she would be a danger to herself as far as self neglect and safety. - Other Findings/Comments Additional Discussion: 07/02/2020 Did follow-up with Rukhsana Ariana [phone], She has not given formal noticed to Radha, though reports that they did increase her rate fairly significantly, in the context suppressing her out of being able to afford this long-term. She is trying to work on a plan, she is having the house work done to see if they can short up so she could transition back home, she is looking at options to be able to have someone checking on her regularly, med administration, as well as oversee her care and transportation. She finds this quite overwhelming, as patient is quite insistent that she can manage, we did discuss patient's deficits and concerns as a vulnerable adult, they would need to have a pretty clear plan as she is not able to weigh in on appropriate decision making regarding her care. We discussed other memory care units, recommended she interview them before she comes up, she is coming up the beginning of July, and is hoping to solidify a plan prior to this. Unfortunately she has to give a 30-day notice, which makes it quite complicated in the context of all this. Did report she is doing much better, has gained weight. Rukhsana's perception is she is a little bit clearer on the phone, but she does call frequently and is unrealistic about a care plan including that she think she can return to driving. She is not looking forward to having any kind of show down with her, but we did discuss patient has have a safe plan in place to transition home. She will call if any further questions, and closer to the time can make an appointment to better if plan for a transition. Also recommended adult family home may be a good option, she would be a good candidate date for that setting. Impression and Recommendations - Palliative Care Impression: This is a 74-year-old woman who is continue to improve, though has ongoing chronic back pain secondary to multiple falls and fractures, progressive cognitive decline, and complex social situation. Patient expresses she is transitioning back home end of month, this would be at unsafe plan, patient needs to be in a supervised situation. Patient's pain currently manageable, patient is more functional, her biggest complaint is her lack of sleep or insomnia at bedtime. This is multifactorial, but problematic for patient. Mike lliative care to provide support and anticipatory guidance in her current setting. Recommendations/Counseling Done: 1. Acute on chronic back pain. This is multifactorial, she has improved from her acute pain from fall. She still has underlying chronic pain behaviors. She does demonstrate improved functional status today, she is still yet to receive her Reclast, her cousin was supposed to be arranging transportation. Patient is currently on gabapentin 300 mg 3 times daily, denies dizziness today. She is on diclofenac 75 mg daily, and acetaminophen 650 mg 3 times daily. She is using heat, is starting to do some exercises on her own, and intermittently staff are applying topical. No changes made at this time. Patient has been counseled not to drink alcohol in combination of with her current medications. 2. Dementia with behavioral disturbances. Patient does have a history of paranoia, anxiety, and intermittent agitation. She has been put on donepezil, patient's mother did have Alzheimer's at a young age. Patient perceives herself as having Alzheimer's, though has very little insight into her limitations. She also has history of alcohol abuse over multiple years. She is managing her incontinence now with depends, staff are unable to assess patient's functional status that she does minimally bathe or dress, at this point does not have assistance. 3. Weight loss. Patient has continued to gain weight, she is getting daily Ensure, is doing better with frequent meals. She would most likely benefit from physical therapy, but is not interested in having any other supportive services. She gets quite confused when someone calls, and tends to hang up frequently. 4. Alcoholism. Patient has long history of daily drinking, no signs of alcohol in apartment, though staff report friends have been bringing it in. I had spoke to her DPOA asking that she communicates with her friends regarding this. Patient at high risk of returns home, to return to drinking and further increasing her risk of falls. 5. Advanced care planning. Patient has a POLST in place completed in 2008 with DNR and comfort measures. She also has DPOA that designates her second cousin Mickie. Patient does not demonstrate any ability return home given her worsening cognition, high risk for falls and both functional and cognitive decline. Awaiting callback for further discussion given patient's latest plan for returning home. Patient would not be safe, may need to make APS report if patient planning to follow through. 60 minutes with greater than 50% of this done in evaluation of patient, coordination of care with JESSICA, follow upon new orders. Counseling with patient in attempt to review concerns for transition home, patient with no insight into her deficits or risks. Counseling with DPOA, regarding Vulnerable Adult, APS, and need for back up plan if fails at home.
== END 2020-06-29 13:01 | disposition home or self-care (01) ==
LOC: PC 13:00
PROVIDERS: ATTEND Nurse Practitioner Adult Health
DX: Z51.5 Encounter for palliative care (principal); M54.9 Dorsalgia, unspecified; G89.29 Other chronic pain; F03.91 Unspecified dementia, unspecified severity, with behavioral disturbance; F10.20 Alcohol dependence, uncomplicated; Z66 Do not resuscitate

== ENCOUNTER 2020-09-13 13:15 | Emergency (ER) | payer MEDICARE, OTHER ==
[2020-09-13] MEDS ORDERED: ONDANSETRON 4 MG/2 ML VIAL IVP STA ×2 (13:31→16:41)
[2020-09-13] MEDS ORDERED: SODIUM CHLORIDE 0.9% 1,000 ML IV STA (13:31)
--- NOTE | 2020-09-13 13:33 | ED Physician Documentation ---
History of Present Illness - Stated complaint Stated Complaint: DEHYDRATED/NOT EATING - Chief complaint Chief Complaint: General - History obtained from History obtained from: Patient, Friend - Additonal information Additional information: 74-year-old with dementia, prosthetic left eye, chronic back pain presents accompanied by her friend/neighbor. For an unclear length of time she has been vomiting. She first mentioned it to him last night but he does not think she has had anything to drink in 2-1/2 days. She lives at home alone. Previously was at [facility]. The palliative care nurse practitioner's note from June was reviewed. There were significant concerns about her going home but over the last couple of months seems to have done well there. Patient is unreliable historian. She is cooperative, ask her if her stomach hurts she says she hurts everywhere. I asked her if she has a headache and she says no but her friend said she was complaining of a severe headache 2 nights ago. When I asked her if she has had diarrhea or constipation she simply replies nothing. I asked if she meant that nothing has come out and she sort of vacillates and does not seem to know. 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: Hysterectomy - Present Medications Home Medications: Ambulatory Orders Medication Instructions Recorded Confirmed Brimonidine 0.2% Ophth Drops 1 drops RIGHTEYE BID 01/05/20 06/07/20 [Alphagan P 0.2% Ophth Drops] Timolol 0.5% Ophth Drops [Timoptic 1 drops RIGHTEYE BID 01/05/20 06/07/20 0.5% Ophth Drops] Acetaminophen [Tylenol] 650 mg PO TID 06/07/20 06/07/20 Cholecalciferol (Vitamin D3) 200 unit PO DAILY 06/07/20 06/07/20 [Vitamin D3] Cyanocobalamin (Vitamin B-12) 500 mcg PO DAILY 06/07/20 06/07/20 [Vitamin B-12 (500 mcg sublingual)] Diclofenac Sodium Dr [Voltaren] 75 mg PO DAILY 06/07/20 06/08/20 Donepezil HCl [Aricept] 10 mg PO DAILY 06/07/20 06/07/20 Multivitamin 1 tab PO DAILY 06/07/20 06/07/20 Turmeric/Turmeric Root Extract 4 cap PO DAILY 06/07/20 06/07/20 [Turmeric 450-50 mg Capsule] Ondansetron Odt [Zofran] 4 mg TL Q6H PRN #10 tablet 09/13/20 - Allergies Allergies/Adverse Reactions: Allergies Allergy/AdvReac Type Severity Reaction Status Date / Time No Known Drug Allergies Allergy Verified 09/13/20 13:32 - Social History Does the pt smoke?: No Smoking Status: Never smoker - POLST Patient has POLST: Yes PD ED PE NORMAL - Vitals Vital signs reviewed: Yes - General General: Other (Alert and oriented to person and place but not time or events) - HEENT HEENT: Other (Right pupil smallish and reactive, soft globe. Left eye is prosthetic) - Neck Neck: Supple, no meningeal sign, No bony TTP - Cardiac Cardiac: RRR, No murmur, Strong equal pulses - Respiratory Respiratory: No respiratory distress, Clear bilaterally - Abdomen Abdomen: Other (Diffusely tender, no surgical signs) - Back Back: No CVA TTP, No spinal TTP - Derm Derm: Normal color, Warm and dry - Extremities Extremities: No edema, No calf tenderness / cord - Neuro Neuro: Normal speech Eye Opening: Spontaneous Motor: Obeys Commands Verbal: Confused GCS Score: 14 Results - Vitals Vitals: Vital Signs - 24 hr 09/13/20 09/13/20 09/13/20 13:28 13:41 14:06 Temperature 36.7 C Heart Rate 63 57 L 59 L Respiratory 20 22 14 Rate Blood Pressure 189/106 H 177/110 H 157/96 H O2 Saturation 100 100 100 Oxygen O2 Source Room air - EKG (time done) 1409 Rate: Rate (enter#) (56) Rhythm: NSR [place]: Normal Intervals: Normal DE QRS: LVH Ischemia: Normal ST segments Computer interpretation: Agree with computer - Labs Labs: Laboratory Tests 06/17/21 06/17/21 06/17/21 13:34 13:34 13:34 WBC 5.3 RBC 5.08 Hgb 14.1 Hct 44.1 MCV 86.8 MCH 27.8 MCHC 32.0 RDW 14.8 Plt Count 315 MPV 10.4 Neut # (Auto) 3.8 Lymph # (Auto) 1.1 L [place] # (Auto) 0.4 Eos # (Auto) 0.0 Baso # (Auto) 0.0 Absolute Nucleated RBC 0.00 Nucleated RBC % 0.0 VBG pH VBG pCO2 VBG pO2 VBG HCO3 VBG Total CO2 VBG O2 Saturation VBG Base Excess Sodium 133 L Potassium 3.7 Chloride 98 L Carbon Dioxide 24 Anion Gap 11.0 BUN 14 Creatinine 0.6 Estimated GFR (MDRD) 97 Glucose 127 H Calcium 9.5 Total Bilirubin 1.3 H AST 24 ALT 16 Alkaline Phosphatase 64 Troponin I High Sens 3.3 Total Protein 8.6 H Albumin 4.4 Globulin 4.2 Albumin/Globulin Ratio 1.0 Lipase 39 Ethyl Alcohol < 5.0 09/13/20 13:55 WBC RBC Hgb Hct MCV MCH MCHC RDW Plt Count MPV Neut # (Auto) Lymph # (Auto) [place] # (Auto) Eos # (Auto) Baso # (Auto) Absolute Nucleated RBC Nucleated RBC % VBG pH 7.488 H VBG pCO2 30.9 L VBG pO2 24.0 L VBG HCO3 22.9 L VBG Total CO2 23.9 L VBG O2 Saturation 48.4 L VBG Base Excess 0.5 Sodium Potassium Chloride Carbon Dioxide Anion Gap BUN Creatinine Estimated GFR (MDRD) Glucose Calcium Total Bilirubin AST ALT Alkaline Phosphatase Troponin I High Sens Total Protein Albumin Globulin Albumin/Globulin Ratio Lipase Ethyl Alcohol - Rads (name of study) CT a/P Radiology: EMP read contemporaneously (CT of the abdomen and pelvis with IV contrast demonstrates a large left-sided cystic mass with mass-effect on the stomach.) PD MEDICAL DECISION MAKING - ED course ED course: 74-year-old woman with dementia who lives alone although accompanied by her supportive neighbor, Hadley. She had vomiting. Had bad headache afew days ago. Tender abd. Imaging demonstrated large Intra-abdominal mass with mass-effect on the stomach, potentially even flipping or partially coursing the stomach per the radiologist. This was discussed with the patient and her neighbor. Also I discussed the case with her POA, Rukhsana, who is in [place]. Patient does not want any specific treatment for this. Does not want surgery, does not want to be hospitalized. Does not want to go to a half-way. I arranged and spoke with Dr. Rhoades, her magnetic resonance imaging director, she will have a rapid admission to hospice, potentially as early tomorrow. Departure - Departure Disposition: Home, Self Care Clinical Impression: Gastric outflow obstruction, Intraabdominal mass Dementia Qualifiers: Dementia type: Alzheimer's Alzheimer's disease onset: unspecified onset Dementia behavioral disturbance: without behavioral disturbance Qualified Code(s): G30.9 - Alzheimer's disease, unspecified Condition: Good Record reviewed to determine appropriate education?: Yes Instructions: ED Dementia Caregiver Support Prescriptions: Ondansetron Odt [Zofran] 4 mg TL Q6H PRN #10 tablet PRN Reason: Nausea / Vomiting Comments: They should be enrolling you in hospice tomorrow as discussed. Return for new or worsening symptoms or for uncontrolled symptoms as needed until hospice admission. I would not eat any big meals, just sips of water. And other liquids.
[2020-09-13 13:42] LABS: BASOPHILS % (AUTO) 0.6 %; EOSINOPHILS % (AUTO) 0.4 %; HCT - HEMATOCRIT 44.1 % (37.0-47.0); HGB - HEMOGLOBIN 14.1 g/dL (12.0-16.0); LYMPHOCYTES # (AUTO) 1.1 10^3/uL (1.5-3.5); LYMPHOCYTES % (AUTO) 20.8 %; MEAN CORPUSCULAR HEMOGLOBIN 27.8 pg (27.0-31.0); MEAN CORPUSCULAR VOLUME 86.8 fL (81.0-99.0); MEAN PLATELET VOLUME 10.4 fL (7.9-10.8); MONOCYTES # (AUTO) 0.4 10^3/uL (0.0-1.0); MONOCYTES % (AUTO) 6.8 %; NEUTROPHILS # (AUTO) 3.8 10^3/uL (1.5-6.6); NEUTROPHILS % (AUTO) 71.2 %; PLT - PLATELET COUNT 315 10^3/uL (130-450); RED BLOOD COUNT 5.08 10^6/uL (4.20-5.40); RED CELL DISTRIBUTION WIDTH 14.8 % (12.0-15.0); WHITE BLOOD COUNT 5.3 x10^3/uL (4.8-10.8)
[2020-09-13 14:01] LABS: ALBUMIN 4.4 g/dL (3.2-5.5); ALKALINE PHOSPHATASE 64 IU/L (42-121); ALT ALANINE AMINOTRANSFERASE 16 IU/L (10-60); AST ASPARTATE AMINOTRANSFERASE 24 IU/L (10-42); BILIRUBIN,TOTAL 1.3 mg/dL (0.2-1.0); BUN - BLOOD UREA NITROGEN 14 mg/dL (6-20); CALCIUM 9.5 mg/dL (8.5-10.3); CARBON DIOXIDE - CO2 24 mmol/L (21-32); CHLORIDE 98 mmol/L (101-111); CREATININE 0.6 mg/dL (0.4-1.0); ETOH - ETHANOL < 5.0 mg/dL; GFR - MDRD 97 (>89); GLUCOSE 127 mg/dL (70-100); LIPASE 39 U/L (22-51); POTASSIUM 3.7 mmol/L (3.5-5.0); SODIUM 133 mmol/L (135-145); TOTAL PROTEIN 8.6 g/dL (6.7-8.2)
[2020-09-13 14:02] LABS: VBG BASE EXCESS 0.5 mmol/L (-2 - +2); VBG HCO3 22.9 mmol/L (23-28); VBG PCO2 30.9 mmHg (41-51); VBG PH 7.488 (7.31-7.41); VBG TOTAL CO2 23.9 mmol/L (24-29)
[2020-09-13 14:03] LABS: VBG OXYGEN SATURATION 48.4 % (60-80)
[2020-09-13] MEDS ORDERED: IOVERSOL 320 100 ML VIAL IVP ONE ×2 (14:12→14:39)
--- NOTE | 2020-09-13 14:48 | CT Report ---
PROCEDURE: HEAD WO INDICATIONS: headache TECHNIQUE: Noncontrast 4.5 mm thick angled axial sections acquired from the foramen magnum to the vertex. For r adiation dose reduction, the following was used: automated exposure control, adjustment of mA and/or kV according to patient size. COMPARISON: None. FINDINGS: Image quality: Excellent. The ventricular system and cortical sulci demonstrate atrophy, consistent for patient's stated age. There are areas of hypodensity in the periventricular and subcortical white matter. There is no acut e intra or extra-axial fluid collection. No acute hemorrhage, mass lesion or midline shift. Brainst em is unremarkable. Left globe prosthesis or other iatrogenic implant is noted. Sinuses are aerated. Osseous structures a re intact. IMPRESSION: 1. No acute intracranial process. 2. Moderate to severe atrophy and chronic microvascular ischemic changes. Reviewed by: Vanda Hickman MD on 09/13/2020 2:47 PM PDT Approved by: Vanda Hickman MD on 09/13/2020 2:47 PM PDT Station ID: [id number]
--- NOTE | 2020-09-13 15:20 | CT Report ---
PROCEDURE: Abdomen/Pelvis W INDICATIONS: IV only, vomiting CONTRAST: IV CONTRAST: Optiray 320 ml: 100 PO CONTRAST: *NO PO CONTRAST TECHNIQUE: After the administration of IV contrast, 5 mm thick sections acquired from the diaphragms to the symp hysis. 5 mm thick coronal and sagittal reformats were acquired. For radiation dose reduction, the f ollowing was used: automated exposure control, adjustment of mA and/or kV according to patient size. COMPARISON: CT abdomen pelvis 11/10/2017 FINDINGS: Image quality: Excellent. ABDOMEN: Lung bases: 4 mm groundglass opacity within the left lower lobe (07/10). It is unchanged from prior ex am. Heart size is normal. Solid organs: Liver and spleen are normal in size and enhancement. Gallbladder is unremarkable Berry iary system is non dilated. Pancreas enhances normally. No adrenal nodules. Kidneys demonstrate no rmal size and enhancement, without hydronephrosis. Peritoneum and bowel: There is an abnormal appearance within the left upper quadrant. There is stran ding identified within the mesenteric fat at what would be the level of the stomach. In addition, the re is a dilated air-filled structure with dependent fluid within the left upper quadrant. It is lacki ng normal stomach morphology. In addition, portions of what would be the expected location of the lef t transverse colon are in direct approximation to this air-fluid structure. There is a large predomin antly cystic appearing mass within the left hemiabdomen measuring 11.5 cm x 12.4 cm x 13.1 cm. The joy perior aspect of this mass is noted extending into the left upper quadrant immediately inferior to th e above described air-fluid structure. Origin of this mass is not well delineated. It is noted in 201 8 it was present lateral to the stomach measuring 7.8 cm x 9.3 cm x 8.7 cm. No free fluid . Nodes and vessels: No retroperitoneal or mesenteric adenopathy by size criteria. Aorta and inferior vena cava are normal in size. Miscellaneous: No ventral hernias. PELVIS: Genitourinary: Bladder wall thickness is normal. Miscellaneous: No inguinal hernias or adenopathy. Bones: No suspicious bony lesions. No vertebral body compression fractures. IMPRESSION: 1. Large left hemiabdomen cystic mass which has increased in size along the inferior margin of a air- filled structure with dependent fluid as described above. The latter structure is cystic affected to represent the stomach which has had a somewhat inverted posterior to anterior orientation suspected t o be secondary to mass effect of cystic structure. While appearance is not classic for torsion and/or volvulus, underlying areas of vascular compromise cannot be excluded. Surgical consultation is recom mended. Delineation of anatomic structures is limited on current exam without oral contrast. Oral con trast may be administered if clinically appropriate for further evaluation. 2. Origin of cystic structure is unclear. If this does represent malignancy since 2018, there is no v isualized metastatic disease. This could represent an enlarging gastric duplication or enteric cyst i f a benign etiology. Slow-growing malignancy cannot be definitively excluded. The above findings were discussed with Dr. James Hough on 09/13/2020 at 3:05 PM. Reviewed by: Vanda Hickman MD on 09/13/2020 3:18 PM PDT Approved by: Vanda Hickman MD on 09/13/2020 3:18 PM PDT Station ID: [id number]
[2020-09-13 17:07] VITALS: BP 155/92
== END 2020-09-13 17:06 | disposition home or self-care (01) ==
LOC: ED 13:15
DX: K56.609 Unspecified intestinal obstruction, unspecified as to partial versus complete obstruction (principal); R19.00 Intra-abdominal and pelvic swelling, mass and lump, unspecified site; G30.9 Alzheimer's disease, unspecified; F02.80 Dementia in other diseases classified elsewhere, unspecified severity, without behavioral disturbance, psychotic disturbance, mood disturbance, and anxiety
CPT/HCPCS: 36415; 70450; 74177; 80053; 82803; 83690; 84484; 85025; 93005; 96361; 96374; 96376; 99281; 99284; G0480; Q9967; 80320

== ENCOUNTER 2020-11-16 05:26 | Outpatient (CLI) | payer MEDICARE, OTHER | END 2020-11-16 05:27 | disposition critical access hospital (66) | LOC: EMS 05:26 | DX: M25.512 Pain in left shoulder (principal) | CPT/HCPCS: A0425; A0429 ==

== ENCOUNTER 2020-11-16 06:00 | Emergency (ER) | payer MEDICARE, OTHER ==
--- NOTE | 2020-11-16 06:10 | ED Physician Documentation ---
PD HPI Fall - Stated complaint Stated Complaint: GLF/L SHOULDER PX/ CHEST PX - History obtained from History obtained from: Patient, EMS - History of Present Illness Mechanism of injury: Unknown (Him aware of beingPatient states she is at the bottom of the stairs with multiple pains. She crawled to the couch subsequently called EMS. She states she believes she was sleepwalking and fell.) Fall distance: Standing position (perhaps down stairs.) Where injury occurred: Home Timing - onset: How many hours ago (uncertain but likely about 1-2 hours ago), Today Injury(ies) location: Face (bridge of nose with abrasion), Back (both upper and lower back hurting), Left Lower Extremity (knee with abrasion and bruising; left foot with tenderness dorsum and base great toe.). No: Chest, Abdomen Associated symptoms: Amnesia (she is not sure of the details of the falling). No: AMS Contributing factors: Other (she told EMS she had had couple of drinks in the evening; also takes OTC meds for sleep.). 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) Psych: None Musculoskeletal: Osteoarthritis, Osteoporosis, Fatigue, Scoliosis, Chronic back pain Derm: Other (hx of basal cell) - Past Surgical History Past Surgical History: Yes General: Appendectomy Ortho: Spine surgery /[employer]: Hysterectomy - Present Medications Home Medications: Ambulatory Orders Medication Instructions Recorded Confirmed Brimonidine 0.2% Ophth Drops 1 drops RIGHTEYE BID 01/05/20 06/07/20 [Alphagan P 0.2% Ophth Drops] Timolol 0.5% Ophth Drops [Timoptic 1 drops RIGHTEYE BID 01/05/20 06/07/20 0.5% Ophth Drops] Acetaminophen [Tylenol] 650 mg PO TID 06/07/20 06/07/20 Cholecalciferol (Vitamin D3) 200 unit PO DAILY 06/07/20 06/07/20 [Vitamin D3] Cyanocobalamin (Vitamin B-12) 500 mcg PO DAILY 06/07/20 06/07/20 [Vitamin B-12 (500 mcg sublingual)] Diclofenac Sodium Dr [Voltaren] 75 mg PO DAILY 06/07/20 06/08/20 Donepezil HCl [Aricept] 10 mg PO DAILY 06/07/20 06/07/20 Multivitamin 1 tab PO DAILY 06/07/20 06/07/20 Turmeric/Turmeric Root Extract 4 cap PO DAILY 06/07/20 06/07/20 [Turmeric 450-50 mg Capsule] Ondansetron Odt [Zofran] 4 mg TL Q6H PRN #10 tablet 09/13/20 - Allergies Allergies/Adverse Reactions: Allergies Allergy/AdvReac Type Severity Reaction Status Date / Time No Known Drug Allergies Allergy Verified 11/16/20 07:35 - Social History Does the pt smoke?: No Smoking Status: Never smoker Does the pt drink ETOH?: Yes Does the pt have substance abuse?: No - Immunizations Immunizations are current?: No - POLST Patient has POLST: Yes PD ED PE NORMAL - Vitals Vital signs reviewed: Yes - General General: Alert and oriented X 3, Well developed/nourished - HEENT HEENT: Atraumatic (not tender on scalp. there is abrasion without bony deformity on bridge of nose. ) - Neck Neck: Supple, no meningeal sign, No adenopathy, Other (some tender mid to lower neck wtihout deformity. Collar in place. ) - Cardiac Cardiac: RRR, No murmur - Respiratory Respiratory: Clear bilaterally, Other (no anterior chestwall tenderness. ) - Abdomen Abdomen: Soft, Non tender - Back Back: Other (Tender in the left scapular and mid scapular area. Also some tenderness in the iliac crest and lower lumbar area. No obvious deformity.) - Derm Derm: Normal color, Warm and dry - Extremities Extremities: No edema, Other (Upper extremities have range of motion without any bony area tenderness. There is an abrasion on dorsum of her hand. The lower extremities show some tenderness and swelling and abrasion on the medial knee. Dorsum of the foot is also tender without deformity.) Results - Vitals Vitals: Vital Signs - 24 hr 11/16/20 11/16/20 11/16/20 06:03 06:38 08:29 Temperature 34.7 C L 35.4 C L Heart Rate 69 61 76 Respiratory 24 16 Rate Blood Pressure 131/87 H 151/94 H O2 Saturation 96 96 100 11/16/20 11/16/20 11/16/20 08:32 10:31 12:00 Temperature 36.5 C 36.7 C Heart Rate 76 78 85 Respiratory 16 20 16 Rate Blood Pressure 149/92 H 131/78 H 137/113 H O2 Saturation 98 95 96 Oxygen O2 Source Room air - EKG (time done) 06:21 Rate: Rate (enter#) (62) Rhythm: NSR [place]: Normal Intervals: Normal AR QRS: Normal Ischemia: Normal ST segments. No: ST elevation c/w ischemia, ST depression - Labs Labs: Laboratory Tests 11/16/20 11/16/20 11/16/20 06:30 06:52 08:23 WBC 11.7 H RBC 4.46 Hgb 12.9 Hct 40.3 MCV 90.4 MCH 28.9 MCHC 32.0 RDW 18.2 H Plt Count 298 MPV 10.4 Neut # (Auto) 9.6 H Lymph # (Auto) 1.1 L Brewster # (Auto) 0.9 Eos # (Auto) 0.0 Baso # (Auto) 0.0 Absolute Nucleated RBC 0.00 Nucleated RBC % 0.0 Sodium 136 Potassium 4.3 Chloride 101 Carbon Dioxide 22 Anion Gap 13.0 BUN 17 Creatinine 0.5 Estimated GFR (MDRD) 120 Glucose 125 H Calcium 9.0 Magnesium 2.2 Total Bilirubin 1.3 H AST 22 ALT 15 Alkaline Phosphatase 52 Total Creatine Kinase 104 Total Protein 7.1 Albumin 3.8 Globulin 3.3 Albumin/Globulin Ratio 1.2 Lipase 38 Nasal Adenovirus (PCR) NOT DETECTED Nasal B. parapertussis DNA (PCR) NOT DETECTED Nasal Coronavir 229E PCR NOT DETECTED Nasal Coronavir HKU1 PCR NOT DETECTED Nasal Coronavir NL63 PCR NOT DETECTED Nasal Coronavir OC43 PCR NOT DETECTED Nasal Enterovir/Rhinovir PCR NOT DETECTED Nasal Influenza B PCR NOT DETECTED Nasal Influenza A PCR NOT DETECTED Nasal Parainfluen 1 PCR NOT DETECTED Nasal Parainfluen 2 PCR NOT DETECTED Nasal Parainfluen 3 PCR NOT DETECTED Nasal Parainfluen 4 PCR NOT DETECTED Nasal RSV (PCR) NOT DETECTED Nasal B.pertussis DNA PCR NOT DETECTED Nasal C.pneumoniae (PCR) NOT DETECTED Jose Elias Human Metapneumo PCR NOT DETECTED Nasal M.pneumoniae (PCR) NOT DETECTED Nasal SARS-CoV-2 (PCR) NOT DETECTED Ethyl Alcohol < 5.0 PD MEDICAL DECISION MAKING - ED course Complexity details: reviewed results, re-evaluated patient, considered differential (Unclear the cause of the fall. May have been related to medications for sleep. Will check blood tests as well as alcohol level. Multiple pains on the neck face upper and lower back and the left knee and foot. We will get imaging of these areas.), d/w patient Departure - Departure Disposition: 02 Transfer Acute Care Hosp Clinical Impression: Accidental fall, Knee contusion, Ribs, multiple fractures, Fracture of right great toe, Fracture of right patella Back strain Qualifiers: Encounter type: initial encounter Qualified Code(s): S39.012A - Strain of muscle, fascia and tendon of lower back, initial encounter Facial abrasion Qualifiers: Encounter type: initial encounter Qualified Code(s): S00.81XA - Abrasion of other part of head, initial encounter Condition: Stable Record reviewed to determine appropriate education?: Yes
[2020-11-16] MEDS ORDERED: KETOROLAC 15 MG/ML VIAL IVP STA (06:12)
[2020-11-16] MEDS ORDERED: SODIUM CHLORIDE 0.9% 1,000 ML IV STA (06:12)
[2020-11-16 06:38] LABS: BASOPHILS % (AUTO) 0.3 %; EOSINOPHILS % (AUTO) 0.3 %; HCT - HEMATOCRIT 40.3 % (37.0-47.0); HGB - HEMOGLOBIN 12.9 g/dL (12.0-16.0); LYMPHOCYTES # (AUTO) 1.1 10^3/uL (1.5-3.5); LYMPHOCYTES % (AUTO) 9.6 %; MEAN CORPUSCULAR HEMOGLOBIN 28.9 pg (27.0-31.0); MEAN CORPUSCULAR VOLUME 90.4 fL (81.0-99.0); MEAN PLATELET VOLUME 10.4 fL (7.9-10.8); MONOCYTES # (AUTO) 0.9 10^3/uL (0.0-1.0); MONOCYTES % (AUTO) 7.3 %; NEUTROPHILS # (AUTO) 9.6 10^3/uL (1.5-6.6); PLT - PLATELET COUNT 298 10^3/uL (130-450); RED BLOOD COUNT 4.46 10^6/uL (4.20-5.40); RED CELL DISTRIBUTION WIDTH 18.2 % (12.0-15.0); WHITE BLOOD COUNT 11.7 x10^3/uL (4.8-10.8)
[2020-11-16] MEDS ORDERED: IOPAMIDOL-300 100 ML VIAL ONE (07:02)
[2020-11-16 07:13] LABS: ALBUMIN 3.8 g/dL (3.2-5.5); ALBUMIN/GLOBULIN RATIO 1.2 (1.0-2.2); ALKALINE PHOSPHATASE 52 IU/L (42-121); ALT ALANINE AMINOTRANSFERASE 15 IU/L (10-60); AST ASPARTATE AMINOTRANSFERASE 22 IU/L (10-42); BILIRUBIN,TOTAL 1.3 mg/dL (0.2-1.0); BUN - BLOOD UREA NITROGEN 17 mg/dL (6-20); CARBON DIOXIDE - CO2 22 mmol/L (21-32); CHLORIDE 101 mmol/L (101-111); CK- CREATINE KINASE 104 IU/L (22-269); CREATININE 0.5 mg/dL (0.4-1.0); ETOH - ETHANOL < 5.0 mg/dL; GFR - MDRD 120 (>89); GLUCOSE 125 mg/dL (70-100); LIPASE 38 U/L (22-51); MAGNESIUM 2.2 mg/dL (1.7-2.8); POTASSIUM 4.3 mmol/L (3.5-5.0); SODIUM 136 mmol/L (135-145); TOTAL PROTEIN 7.1 g/dL (6.7-8.2)
--- NOTE | 2020-11-16 08:03 | XRAY Report ---
PROCEDURE: Knee 3 View LT INDICATIONS: fall with knee pain and contusion TECHNIQUE: 3 views of the left knee were acquired. COMPARISON: Left knee radiographs 07/02/2015. FINDINGS: Bones: Possible minimally displaced fracture at the medial patella on sunrise view. No suspicious bon y lesions. There is generalized osteopenia. Mild narrowing of the medial femorotibial compartment rito int spaces is seen. Soft tissues: Small joint effusion. No suspicious soft tissue calcifications. IMPRESSION: Possible minimally displaced fracture of the medial patella. Recommend correlation with point tenderness. CT may be obtained for confirmation if indicated clinically. There is no significant discrepancy when compared with the overnight teleradiology report.. Reviewed by: Chao Reed MD on 11/16/2020 8:02 AM PDT Approved by: Chao Reed MD on 11/16/2020 8:02 AM PDT Station ID: [id number]
[2020-11-16] MEDS ORDERED: IOPAMIDOL-300 100 ML VIAL IVP ONE (08:12)
--- NOTE | 2020-11-16 08:15 | XRAY Report ---
PROCEDURE: Foot 3 View LT INDICATIONS: fall with foot pain TECHNIQUE: 3 views of the foot were acquired. COMPARISON: None. FINDINGS: Bones: There is a suspected minimally displaced fracture at the lateral base of the first distal phal anx extending into the interphalangeal joint versus chronic irregularity related to degenerative haynes ges. Overlapping of the cortex of the second middle and proximal phalanges is suspicious for distal d islocation of the procedure is not well seen on lateral view. Findings are superimposed on generalize d osteopenia. Degenerative changes are seen throughout the toes at the first metatarsophalangeal join t. No suspicious bony lesions. Soft tissues: No suspicious soft tissue calcification. IMPRESSION: 1. Suspected minimally displaced fracture at the lateral base of the first distal phalanx extending into the interphalangeal joint. Recommend correlation for point tenderness. 2. Probable dorsal dislocation of the second proximal interphalangeal joint. Findings are discrepent with the overnight preliminary teleradiology report, and were discussed with the Emergency Department physician, Dr. Mendoza, by telephone on 11/16/2020 at 8:12 AM. Reviewed by: Chao Reed MD on 11/16/2020 8:14 AM PDT Approved by: Chao Reed MD on 11/16/2020 8:14 AM PDT Station ID: [id number]
--- NOTE | 2020-11-16 08:25 | ED Physician Documentation ---
ED Addendum - Addendum Addendum: 11/16/20 08:22 75-year-old female with early dementia lives in her home alone and had a fall last night. She was evaluated by Dr. Aviles in the emergency department she has been given a liter of saline and, CT of the chest, abdomen, pelvis, cervical spine and head have been obtained, as well as x-rays of the left knee and foot. She has fractures of the left great toe dislocation of the 2nd toe a mild fracture of the left patella and rib fractures with pulmonary contusion. I have evaluated the patient at the bedside she does have some bruising to her toes I relocated the 2nd toe she seems quite forgetful did not recognize me other than my face was familiar. She indicates that she has not been recently ill. 11/16/20 08:26 Foot: Impression: 1. Suspected minimally displaced fracture of the lateral base of the 1st meta phalangeal extending into the interphalangeal joint. Recommend correlation for point tenderness. 2. Probable dorsal dislocation of the 2nd proximal interphalangeal joint. 11/16/20 08:27 Knee: Impression possibly minimally displaced fracture of the medial patella. Recommend correlation with point tenderness. CT may be obtained to confirm if indicated clinically. There is no significant discrepancy when compared with the overnight tolerated the report 11/16/20 08:45 CT cervical spine: Impression: No CT evidence of acute traumatic cervical spine injury. 11/16/20 08:46 CT head: Impression: No acute intracranial finding. Global cerebral volume loss and chronic microvascular ischemic changes. 11/16/20 09:22 CT ab/pel: Impression: A large fluid-filled cystic structure with mural thickening medially is again noted at the peritoneal space of the left mid and upper abdomen. This structure has been previously present and has not changed from most recent prior study 09/13/2020 but has enlarged over time from 11/10/2017. The prior CT report had advised obtaining surgical consultation. Please ensure that this has been performed. The structure does not appear to represent a sequela of recent trauma. Numerous vertebral compression fractures have been present, best seen on sagittal reformatting should imaging, but no new fracture is found. Overall, no definite acute disease. Small bilateral pleural effusions, scant on the right. 11/16/20 09:26 CT chest: Impression: No acute disease. Prior thoracic spine plain films may have documented mid and lower thoracic spine compression fractures. No definite acute trauma found. MR scanning, however, may be warranted if significant new pain is present because plain film imaging would not provide the degree of anatomic detail and detection of marrow edema necessary for documenting definite new injury. On my read there are at least 3 rib fractures on the right and one on the left. . 11/16/20 09:37 11/16/20 09:44 Dr. Sykes consulted for admission for trauma for this elderly female with multiple rib fractures, a fracture of the left great toe, a nondisplaced fracture of the patella who is on comfort measures. There is pulmonary contusion and a tiny pneumothorax on the left. The surgeon recommends transfer to a trauma center and the patient's hospice doctor calls and revokes her hospice status. She is non-compliant and does not want further care. Her DPOA is contacted and recommends treatment for comfort. We are looking for a bed at [facility]. 11/16/20 13:11 11/16/20 13:28 CT addendum #1 there is a lower posterior right rib fracture lung bases seen on CT series 3 images at 171, mildly displaced, without associated pneumothorax. There are also several adjacent posterior left mid and lower chest rib fractures with a small amount of extravasated gas into the chest wall immediately adjacent, best centered on series 3 image 99. 3-4 adjacent rib fracture show undulation of the cortical margins in that area, indicating a series of adjacent rib fractures. Within the anterior left pleural space a definite pneumothorax is not found. 11/16/20 16:54We were able to contact the trauma surgeon at [facility] and they will accept the patient in transfer.
[2020-11-16] MEDS ORDERED: ONDANSETRON 4 MG/2 ML VIAL IVP STA (08:40)
[2020-11-16] MEDS ORDERED: MORPHINE 2 MG/ML CARPUJECT IVP STA ×2 (08:40→14:37)
--- NOTE | 2020-11-16 08:43 | CT Report ---
PROCEDURE: HEAD WO INDICATIONS: fall and struck head; does not remember the fall TECHNIQUE: Noncontrast 4.5 mm thick angled axial sections acquired from the foramen magnum to the vertex. For r adiation dose reduction, the following was used: automated exposure control, adjustment of mA and/or kV according to patient size. COMPARISON: 09/13/2020 FINDINGS: Image quality: Excellent. CSF spaces: Basal cisterns are patent. No extra-axial fluid collections. Ventricles are normal in size and shape. Brain: Global cerebral volume loss with chronic microvascular ischemic changes, both advanced for ag e. No midline shift. No intracranial masses or hemorrhage. Herrera-white matter interface is normal. Skull and face: Calvarium and visualized facial bones are intact, without suspicious lesions. Left globe prosthesis. Right intraocular lens replacement. Sinuses: Visualized sinuses and mastoids are clear. IMPRESSION: No acute intracranial finding. Global cerebral volume loss and chronic microvascular isc hemic changes. Reviewed by: Art King MD on 11/16/2020 8:41 AM PDT Approved by: Art King MD on 11/16/2020 8:41 AM PDT Station ID: [id number]
--- NOTE | 2020-11-16 08:45 | CT Report ---
PROCEDURE: CERVICAL SPINE WO INDICATIONS: Trauma, fall, neck pain TECHNIQUE: Noncontrast 3 mm thick sections acquired from the skull base to the T4 level. Sagittal and coronal r eformats were then constructed. For radiation dose reduction, the following was used: automated exp osure control, adjustment of mA and/or kV according to patient size. COMPARISON: 12/11/2017 MRI cervical spine FINDINGS: Image quality: Excellent. Bones: No fracture or traumatic listhesis demonstrated. Minimal degenerative anterolisthesis of C3 on C4 measuring 3 mm is similar to the prior study. Facets are congruent with no subluxation or disloca tion. Extensive degenerative changes. Soft tissues: Prevertebral soft tissues are normal in thickness. No paravertebral hematomas. No ap ical pneumothoraces. IMPRESSION: No CT evidence of acute traumatic cervical spine injury. Reviewed by: Art King MD on 11/16/2020 8:43 AM PDT Approved by: Art King MD on 11/16/2020 8:43 AM PDT Station ID: [id number]
--- NOTE | 2020-11-16 09:20 | CT Report ---
PROCEDURE: Abdomen/Pelvis W INDICATIONS: fall with pain lower back and mid abd CONTRAST: IV CONTRAST: Isovue 300 ml: 100 PO CONTRAST: *NO PO CONTRAST TECHNIQUE: After the administration of nonionic contrast, 5 mm thick sections acquired from the diaphragms to th e symphysis. 5 mm thick coronal and sagittal reformats were acquired. For radiation dose reduction, the following was used: automated exposure control, adjustment of mA and/or kV according to patient size. COMPARISON: Prior abdomen/pelvis CT scanning 10/13/2020. FINDINGS: Image quality: Excellent. ABDOMEN: Lung bases: Lung bases are clear except for mild atelectasis. Small bilateral pleural effusions, gr eater on the left than the right. Heart size is normal. Solid organs: Liver and spleen are normal in size and enhancement. Gallbladder appears normal Bili eleuterio system is non dilated. Pancreas enhances normally. No adrenal nodules. Kidneys demonstrate nor mal size and enhancement, without hydronephrosis. Peritoneum and bowel: Bowel loops demonstrate normal wall thickness and caliber. No free fluid or a ir. Again noted is a large cystic mass, ovoid, described also in detail on prior CT scanning dated . This mass also was present 11/10/2017 and has enlarged in size over time. It is near but jett s not appear to definitely emanate from the gastric margin, previously discussed. Nodes and vessels: No retroperitoneal or mesenteric adenopathy by size criteria. Aorta and inferior vena cava are normal in size. Miscellaneous: No ventral hernias. PELVIS: Genitourinary: Bladder wall thickness is normal. Miscellaneous: No inguinal hernias or adenopathy. Bones: No suspicious bony lesions. Numerous previously present vertebral body compression fractures without definite new injury.. IMPRESSION: A large fluid-filled cystic structure with mural thickening medially is again noted at t he peritoneal space of the left mid and upper abdomen. This structure has been previously present and has not changed from the most recent prior study 09/13/2020 but has enlarged over time from 11/10/[address] report had advised obtaining surgical consultation. Please ensure that this has been p erformed. This structure does not appear to represent a sequela of recent trauma. Numerous vertebral compression fractures have been present, best seen on sagittal reformatting should imaging, but no new fracture is found. Overall, no definite acute disease. Small bilateral pleural effusions, scant on the right. Reviewed by: Marcos Adams MD on 11/16/2020 9:18 AM PDT Approved by: Marcos Adams MD on 11/16/2020 9:18 AM PDT Station ID: [id number]
--- NOTE | 2020-11-16 09:25 | CT Report ---
PROCEDURE: CHEST W INDICATIONS: fall with upper back/thoracic pain CONTRAST: IV CONTRAST: Isovue 300 ml: 100 PO CONTRAST: *NO PO CONTRAST TECHNIQUE: After the administration of intravenous contrast, images were acquired from the pulmonary apices to t he posterior costophrenic angles. Multiplanar MIP reformats were acquired. For radiation dose reduc tion, the following was used: automated exposure control, adjustment of mA and/or kV according to pa tient size. COMPARISON: Abdominal CT same day, thoracic spine plain films 04/03/2020 (listed under lumbosacral spi ne having).. FINDINGS: Image quality: Excellent. Lungs and pleura: No acute air space opacities are found that would indicate presence of definite pn eumonia. There is mild atelectasis at each lung base associated with small bilateral pleural effusion s, left slightly greater than right.. No pneumothorax. Central and peripheral airways are patent a nd normal in caliber. Mediastinum: Heart size is normal. No pericardial effusion. No mediastinal or hilar adenopathy by size criteria. Thoracic aorta and central pulmonary arteries are normal in size. Esophagus is jose l in caliber. No hiatal hernia. Bones and chest wall: No suspicious bony lesions. No new vertebral body compression fractures. No axillary or supraclavicular adenopathy by size criteria. The thyroid is normal in size and there are no incidental findings.. Abdomen: Visualized upper abdominal solid organs appear normal. Upper abdominal bowel loops are nor mal in caliber. IMPRESSION: No acute disease. Prior thoracic spine plain films have documented mid and lower thoracic spine compr ession fractures. No definite acute trauma found. MR scanning, however, may be warranted if significa nt new pain is present because plain film imaging would not provide the degree of anatomic detail and detection of marrow edema necessary for documenting definite new injury. CLINICAL RECOMMENDATION STATEMENTS: In patients <35 years with an ITN detected on CT, MRI, or extrathyroidal ultrasound, the Committee re commends further evaluation with dedicated thyroid ultrasound if the nodule is ?1 cm and has no suspi cious imaging features, and if the patient has normal life expectancy. In patients ?35 years with an ITN detected on CT, MRI, or extrathyroidal ultrasound, the Committee re commends further evaluation with dedicated thyroid ultrasound if the nodule is ?1.5 cm and has no ash picious imaging features, and if the patient has normal life expectancy. (ACR, 2014) Reviewed by: Marcos Adams MD on 11/16/2020 9:23 AM PDT Approved by: Marcos Adams MD on 11/16/2020 9:23 AM PDT Station ID: [id number]
[2020-11-16 09:59] LABS: B. PARAPERTUSSIS- RESP PCR PAN NOT DETECTED; B. PERTUSSIS- RESP PCR PANEL NOT DETECTED; C. PNEUMONIAE- RESP PCR PANEL NOT DETECTED; CORONAVIRUS 229E-RESP PCR NOT DETECTED; CORONAVIRUS HKU1-RESP PCR NOT DETECTED; CORONAVIRUS NL63-RESP PCR NOT DETECTED; CORONAVIRUS OC43-RESP PCR NOT DETECTED; HUMAN METAPNEUMOVIRUS NOT DETECTED; INFLUENZA A- RESP PCR PANEL NOT DETECTED; INFLUENZA B - RESP PCR PANEL NOT DETECTED; M. PNEUMONIAE- RESP PCR PANEL NOT DETECTED; PARAINFLUENZA VIRUS 1 NOT DETECTED; PARAINFLUENZA VIRUS 2 NOT DETECTED; PARAINFLUENZA VIRUS 3 NOT DETECTED; PARAINFLUENZA VIRUS 4 NOT DETECTED; RHINOVIRUS/ENTEROVIRUS NOT DETECTED; RSV- RESP PCR PANEL NOT DETECTED; SARS-CoV-2 -RESP PCR PANEL NOT DETECTED
[2020-11-16 12:35] VITALS: BP 137/113
== END 2020-11-16 15:11 | disposition short-term general hospital (02) ==
LOC: ED 06:00
DX: S22.43XA Multiple fractures of ribs, bilateral, initial encounter for closed fracture (principal); S27.329A Contusion of lung, unspecified, initial encounter; S82.002A Unspecified fracture of left patella, initial encounter for closed fracture; S92.415A Nondisplaced fracture of proximal phalanx of left great toe, initial encounter for closed fracture; S93.115A Dislocation of interphalangeal joint of left lesser toe(s), initial encounter; S39.012A Strain of muscle, fascia and tendon of lower back, initial encounter; S00.31XA Abrasion of nose, initial encounter; S80.212A Abrasion, left knee, initial encounter; S60.519A Abrasion of unspecified hand, initial encounter; W10.9XXA Fall (on) (from) unspecified stairs and steps, initial encounter; Y92.009 Unspecified place in unspecified non-institutional (private) residence as the place of occurrence of the external cause; M25.512 Pain in left shoulder; M54.2 Cervicalgia; M54.6 Pain in thoracic spine; Z20.822 Contact with and (suspected) exposure to COVID-19; F03.90 Unspecified dementia, unspecified severity, without behavioral disturbance, psychotic disturbance, mood disturbance, and anxiety
CPT/HCPCS: 36415; 70450; 71260; 72125; 73562; 73630; 74177; 80053; 82550; 83690; 83735; 85025; 87631; 93005; 96374; 96375; 96376; 99284; 99285; G0480; Q9967; 0202U; 80320

== ENCOUNTER 2020-11-16 15:05 | Outpatient (CLI) | payer MEDICARE, OTHER | END 2020-11-16 15:06 | disposition short-term general hospital (02) | LOC: EMS 15:05 | PROVIDERS: ATTEND Emergency Medicine | DX: S22.43XA Multiple fractures of ribs, bilateral, initial encounter for closed fracture (principal); S92.402A Displaced unspecified fracture of left great toe, initial encounter for closed fracture; S82.002A Unspecified fracture of left patella, initial encounter for closed fracture; S27.0XXA Traumatic pneumothorax, initial encounter; W19.XXXA Unspecified fall, initial encounter; Y92.009 Unspecified place in unspecified non-institutional (private) residence as the place of occurrence of the external cause | CPT/HCPCS: A0425; A0428 ==